=== PATIENT | female | born 1960 | race Caucasian/White ===

== ENCOUNTER 2019-07-08 08:38 | Inpatient (IN) | payer SELFPAY ==
[2019-07-08] MEDS ORDERED: DIPH/PERTUSS(ACELL)/TETANUS VAC/PF 0.5 ML SYR (>=10YO) IM ONE (09:03)
--- NOTE | 2019-07-08 09:06 | ER Document Report ---
ED Hip Pain/Injury - General Chief Complaint: Hip Pain Stated Complaint: FALL/R HIP PAIN Time Seen by Provider: 07/08/19 08:49 Mode of Arrival: Medic Information source: Patient Notes: Patient states she slipped in the shower yesterday falling injuring her right hip and elbow. Patient states she was able to crawl back to her room and get into bed. Patient complains of persistent right hip pain. Patient with laceration overlying the right elbow. Patient denies any head injury or loss of consciousness. Patient states injury occurred around 730 yesterday evening. TRAVEL OUTSIDE OF THE [place] IN LAST 30 DAYS: No - HPI Patient complains to provider of: Injury, Pain, Hip Where: Home Onset/Duration: Sudden Quality of pain: Sharp Pain Level: 3 Context: Fell/slipped Symptoms prior to fall: denies: Chest pain, Cough, Headache Symptoms since fall: Other - Right hip pain Skin Color: Normal Skin Temperature: Warm Use of anticoagulant: Plavix Other injuries: RUE, RLE - Related Data Allergies/Adverse Reactions: No Known Allergies Allergy (Verified 07/08/19 09:33) Past Medical History - General Information source: Patient - Social History Smoking Status: Never Smoker Lives with: Alone Family History: Reviewed & Not Pertinent - Past Medical History Cardiac Medical History: Reports: Hx Hypercholesterolemia, Hx Hypertension Neurological Medical History: Reports: Hx Cerebrovascular Accident Past Surgical History: Reports: Hx Appendectomy, Hx Tubal Ligation Review of Systems - Review of Systems Constitutional: No symptoms reported EENT: No symptoms reported Cardiovascular: No symptoms reported. denies: Chest pain, Lightheaded Respiratory: No symptoms reported Gastrointestinal: No symptoms reported. denies: Abdominal pain, Nausea, Vomiting Genitourinary: No symptoms reported Female Genitourinary: No symptoms reported Musculoskeletal: Joint pain - Right hip pain Skin: Other - Laceration to right elbow, bruising to right hip Hematologic/Lymphatic: No symptoms reported Neurological/Psychological: No symptoms reported. denies: Lost consciousness, Headaches Physical Exam - Vital signs Vitals: Resp 19 07/08/19 08:47 - General General appearance: Appears well, Alert In distress: None - HEENT Head: Normocephalic, Atraumatic Eyes: Normal Nasal: Normal Neck: Normal, Supple. No: Lymphadenopathy - Respiratory Respiratory status: No respiratory distress Chest status: Nontender Breath sounds: Normal. No: Rales, Rhonchi, Stridor, Wheezing Chest palpation: Normal - Cardiovascular Rhythm: Regular Heart sounds: S1 appreciated, S2 appreciated Pulses: Normal: Dorsalis pedis - Abdominal Inspection: Normal Distension: No distension Bowel sounds: Normal Tenderness: Nontender Organomegaly: No organomegaly - Extremities General upper extremity: Tender - Mild tenderness to right elbow, Normal str ength General lower extremity: Tender - Right hip tenderness Shoulder: Normal, Nontender Arm: Normal, Nontender Elbow: Tender - Right elbow tenderness with overlying 1.5 cm laceration, wound edges almost completely approximated, Laceration. No: Limited ROM Forearm: Normal, Nontender Wrist: Normal, Nontender Hand: Normal, Nontender Hip: Tender - Right hip tenderness, Ecchymosis, Unable to bear weight, Other - Right leg externally rotated, leg length discrepancy right shorter than left Knee: Normal, Nontender Calf: Normal, Nontender Ankle: Normal, Nontender Foot: Normal, Nontender - Neurological Neuro grossly intact: Yes Cognition: Normal [place] Coma Scale Eye Opening: Spontaneous [place] Coma Scale Verbal: Oriented Arely Coma Scale Motor: Obeys Commands Arely Coma Scale Total: 15 - Psychological Associated symptoms: Normal affect, Normal mood - Skin Skin Temperature: Warm Skin Moisture: Dry Skin Color: Ecchymosis - Right hip Skin irregularity: Laceration - 1.5 cm laceration overlying right elbow Course - Re-evaluation Re-evalutation: 07/08/19 10:50 Pt with right subcapital hip fracture. Consulted with Dr. Schmidt regarding patient presentation. Discussed patient's previous medical history. Request that hospitalist admit patient due to underlying comorbidities. 07/08/19 10:[address] Hawthorne who agrees to accept patient to [facility]'s services. - Vital Signs Vital signs: Temp Pulse Resp BP Pulse Ox 98.3 F 16 186/105 H 94 07/08/19 10:15 07/08/19 13:12 07/08/19 13:13 07/08/19 13:12 - Laboratory Result Diagrams: 07/08/19 08:59 07/08/19 08:59 Laboratory results interpreted by me: 07/08/19 07/08/19 08:59 08:59 RBC 3.63 L Hgb 10.4 L Hct 30.6 L RDW 17.7 H Lymph % (Auto) 5.8 L Absolute Neuts (auto) 8.6 H Seg Neutrophils % 84.6 H Sodium 131.9 L Labs- Entire Visit 07/08/19 07/08/19 07/08/19 08:59 08:59 09:09 WBC 10.2 RBC 3.63 L Hgb 10.4 L Hct 30.6 L MCV 84 MCH 28.6 MCHC 34.0 RDW 17.7 H Plt Count 294 Lymph % (Auto) 5.8 L [place] % (Auto) 9.2 Eos % (Auto) 0.1 Baso % (Auto) 0.3 Absolute Neuts (auto) 8.6 H Absolute Lymphs (auto) 0.6 Absolute Monos (auto) 0.9 Absolute Eos (auto) 0.0 Absolute Basos (auto) 0.0 Seg Neutrophils % 84.6 H Sodium 131.9 L Potassium 3.8 Chloride 99 Carbon Dioxide 25 Anion Gap 8 BUN 8 Creatinine 0.66 Est GFR ( Amer) > 60 Est GFR (MDRD) Non-Af > 60 Glucose 104 Calcium 9.2 Total Bilirubin 0.9 Direct Bilirubin 0.0 Neonat Total Bilirubin Not Reportable Neonat Direct Bilirubin Not Reportable Neonat Indirect Bili Not Reportable AST 28 ALT 15 Alkaline Phosphatase 62 Creatine Kinase 105 Total Protein 7.1 Albumin 4.3 Urine Color YELLOW Urine Appearance CLEAR Urine pH 6.0 Ur Specific [place] 1.010 Urine Protein NEGATIVE Urine Glucose (UA) NEGATIVE Urine Ketones NEGATIVE Urine Blood NEGATIVE Urine Nitrite NEGATIVE Urine Bilirubin NEGATIVE Urine Urobilinogen NEGATIVE Ur Leukocyte Esterase NEGATIVE Urine WBC (Auto) 1 Urine RBC (Auto) 2 U Hyaline Cast (Auto) 1 Squamous Epi Cells Auto <1 Urine Mucus (Auto) RARE Urine Ascorbic Acid NEGATIVE - Diagnostic Test Radiology reviewed: Image reviewed, Reports reviewed Procedures - Laceration/Wound Repair Right Elbow Wound length (cm): 1.5 Wound's Depth, Shape: Linear Laceration pre-procedure: Betadine prep applied Wound explored: Clean Wound Repaired With: Steri-strips, Dermabond Layer Closure?: No Post-procedure NV exam normal: Yes Complications: No Discharge - Discharge Clinical Impression: Closed right hip fracture Qualifiers: Encounter type: initial encounter Qualified Code(s): S72.001A - Fracture of unspecified part of neck of right femur, initial encounter for closed fracture Laceration of right elbow Qualifiers: Encounter type: initial encounter Qualified Code(s): S51.011A - Laceration without foreign body of right elbow, initial encounter Condition: Stable Disposition: ADMITTED INPATIENT Admitting Provider: Christoph (Hospitalist) Unit Admitted: Medical Floor
[2019-07-08 09:11] LABS: ABSOLUTE LYMPHOCYTES (AUTO) 0.6 10^3/uL (0.5-4.7); ABSOLUTE MONOCYTES (AUTO) 0.9 10^3/uL (0.1-1.4); ABSOLUTE NEUT (AUTO) 8.6 10^3/uL (1.7-8.2); BASOPHILS % (AUTO) 0.3 % (0-2); EOSINOPHILS % (AUTO) 0.1 % (0-6); HEMATOCRIT 30.6 % (36.0-47.0); HEMOGLOBIN 10.4 g/dL (12.0-15.5); LYMPHOCYTES % (AUTO) 5.8 % (13-45); MEAN CORPUSCULAR HEMOGLOBIN 28.6 pg (27.0-33.4); MEAN CORPUSCULAR VOLUME 84 fl (80-97); MONOCYTES % (AUTO) 9.2 % (3-13); PLATELET COUNT 294 10^3/uL (150-450); RED BLOOD COUNT 3.63 10^6/uL (3.72-5.28); RED CELL DISTRIBUTION WIDTH 17.7 % (11.5-14.0); SEGMENTED NEUTROPHILS % (AUTO) 84.6 % (42-78); TOTAL CELLS COUNTED % (AUTO) 100 %; WHITE BLOOD COUNT 10.2 10^3/uL (4.0-10.5)
[2019-07-08 09:26] LABS: APPEARANCE,URINE CLEAR; BILIRUBIN,URINE NEGATIVE (NEGATIVE); COLOR,URINE YELLOW; GLUCOSE, URINE NEGATIVE (NEGATIVE); KETONES,URINE NEGATIVE (NEGATIVE); LEUKOCYTE ESTERASE,URINE NEGATIVE (NEGATIVE); NITRITE,URINE NEGATIVE (NEGATIVE); PROTEIN,URINE NEGATIVE (NEGATIVE); UROBILINOGEN,URINE NEGATIVE mg/dL (<2.0)
[2019-07-08 09:33] LABS: ALBUMIN 4.3 g/dL (3.5-5.0); ALKALINE PHOSPHATASE 62 U/L (38-126); ANION GAP 8 (5-19); ASPARTATE AMINO TRANSFERASE 28 U/L (14-36); BILIRUBIN,TOTAL 0.9 mg/dL (0.2-1.3); BLOOD UREA NITROGEN 8 mg/dL (7-20); CALCIUM 9.2 mg/dL (8.4-10.2); CARBON DIOXIDE 25 mmol/L (22-30); CHLORIDE 99 mmol/L (98-107); CREATINE KINASE 105 U/L (30-135); GLUCOSE 104 mg/dL (75-110); POTASSIUM 3.8 mmol/L (3.6-5.0); TOTAL PROTEIN 7.1 g/dL (6.3-8.2)
--- NOTE | 2019-07-08 09:57 | RADIOLOGY REPORT (SQ) ---
EXAM DESCRIPTION: HIP RIGHT AP/LATERAL IMAGES COMPLETED DATE/TIME: 07/08/2019 9:49 am REASON FOR STUDY: fall; pain upon ambulating COMPARISON: None. NUMBER OF VIEWS: Two views. TECHNIQUE: AP and frog-leg view of the right hip. LIMITATIONS: Artifact overlies the left hip. FINDINGS: MINERALIZATION: Normal. RIGHT HIP: Subcapital right hip fracture with resulting varus deformity. OPPOSITE HIP: Grossly intact. SOFT TISSUES: No findings. OTHER: No other significant finding. IMPRESSION: Subcapital right hip fracture with resulting varus deformity. COMMENT: Pelvic fractures are often occult on plain radiographs. If strong clinical suspicion for f racture, recommend CT or MR. TECHNICAL DOCUMENTATION: JOB ID: [id number] 2010 [employer]- All Rights Reserved Reading location - IP/workstation name: [email or web address]
--- NOTE | 2019-07-08 10:18 | RADIOLOGY REPORT (SQ) ---
EXAM DESCRIPTION: ELBOW RIGHT OVER 2 VIEWS IMAGES COMPLETED DATE/TIME: 07/08/2019 9:49 am REASON FOR STUDY: fall, elbow injury COMPARISON: None. NUMBER OF VIEWS: Four views. TECHNIQUE: AP, lateral, and both oblique radiographic images acquired of the right elbow. LIMITATIONS: None. FINDINGS: MINERALIZATION: Normal. BONES: No acute fracture or dislocation. No worrisome bone lesions. JOINT: No effusion. SOFT TISSUES: No soft tissue swelling. No foreign body. OTHER: No other significant finding. IMPRESSION: NEGATIVE STUDY OF THE RIGHT ELBOW. NO RADIOGRAPHIC EVIDENCE OF ACUTE INJURY. TECHNICAL DOCUMENTATION: JOB ID: [id number] 2010 [employer]- All Rights Reserved Reading location - IP/workstation name: [email or web address]
--- NOTE | 2019-07-08 10:19 | RADIOLOGY REPORT (SQ) ---
EXAM DESCRIPTION: CHEST SINGLE VIEW IMAGES COMPLETED DATE/TIME: 07/08/2019 9:49 am REASON FOR STUDY: PRE OP COMPARISON: None. EXAM PARAMETERS: NUMBER OF VIEWS: One view. TECHNIQUE: Single frontal radiographic view of the chest acquired. RADIATION DOSE: NA LIMITATIONS: None. FINDINGS: LUNGS AND PLEURA: No opacities, masses or pneumothorax. No pleural effusion. MEDIASTINUM AND HILAR STRUCTURES: No masses. Contour normal. HEART AND VASCULAR STRUCTURES: Heart normal in size. Normal vasculature. BONES: No acute findings. HARDWARE: None in the chest. OTHER: No other significant finding. IMPRESSION: NO ACUTE RADIOGRAPHIC FINDING IN THE CHEST. TECHNICAL DOCUMENTATION: JOB ID: [id number] 2010 [employer]- All Rights Reserved Reading location - IP/workstation name: [email or web address]
[2019-07-08] MEDS ORDERED: MORPHINE SULFATE 10 MG/ML INJ IV ONE (10:39)
[2019-07-08] MEDS ORDERED: ONDANSETRON HCL INJ/PF 4 MG/2 ML SDV IV ONE (10:49)
[2019-07-08] MEDS ORDERED: ONDANSETRON HCL INJ/PF 4 MG/2 ML SDV IV PRN (12:14)
[2019-07-08] MEDS ORDERED: ACETAMINOPHEN 325 MG TABLET PO PRN (12:18)
[2019-07-08] MEDS ORDERED: MAGNESIUM HYDROXIDE SUSP 30 ML UDCUP PO PRN (12:18)
[2019-07-08] MEDS ORDERED: TEMAZEPAM 7.5 MG CAPSULE PO PRN (12:18)
[2019-07-08] MEDS ORDERED: MAG HYDROX/AL HYDROX/SIMETH SUSP 30 ML UDCUP PO PRN (12:18)
[2019-07-08] MEDS ORDERED: METOPROLOL TARTRATE PF/INJ 5 MG/5 ML SDV IV PRN (12:29)
--- NOTE | 2019-07-08 12:37 | PDOC CONSULTATION ---
Consultation Consult Date: 07/08/19 Attending physician:: MARCIA STEPHENS Provider Consulted: KENN MAY Consult reason:: Right Hip Pain History of Present Illness Admission Date/PCP: 07/08/19 11:10 Patient complains of: Right hip pain History of Present Illness: MARVIN FONTAINE is a 59 year old female who sustained a fall onto her right hip last evening while in the bathroom. Patient lives at home alone and was an independent ambulator until most recent fall. She was able to get out of the bathroom according to the patient by crawling. Patient states pain 5/5 worse with motion. denies numbness or tingling. Denies pain prior to fall. Past Medical History Cardiac Medical History: Reports: Hyperlipidema, Hypertension Past Surgical History Past Surgical History: Reports: Appendectomy, Tubal Ligation Social History Lives with: Alone Smoking Status: Never Smoker Family History Family History: Reviewed & Not Pertinent Parental Family History Reviewed: No Children Family History Reviewed: No Sibling(s) Family History Reviewed.: No Medication/Allergy Home Medications: Amlodipine Besylate [Norvasc 5 mg Tablet] 5 mg PO DAILY 07/08/19 Clopidogrel Bisulfate [Plavix 75 mg Tablet] 75 mg PO DAILY 07/08/19 Pantoprazole Sodium [Protonix [address] Tablet] 40 mg PO QAM 07/08/19 Pravastatin Sodium 20 mg PO DAILY 07/08/19 Allergies/Adverse Reactions: No Known Allergies Allergy (Verified 07/08/19 09:33) Review of Systems Constitutional: ABSENT: chills, fever(s), headache(s), weight gain, weight loss Eyes: ABSENT: visual disturbances Ears: ABSENT: hearing changes Cardiovascular: PRESENT: chest pain. ABSENT: dyspnea on exertion, edema, orthropnea, palpitations Respiratory: ABSENT: cough, hemoptysis Gastrointestinal: ABSENT: abdominal pain, constipation, diarrhea, hematemesis, hematochezia, nausea, vomiting Genitourinary: ABSENT: dysuria, hematuria Musculoskeletal: PRESENT: as per HPI, other Integumentary: ABSENT: rash, wounds Neurological: ABSENT: abnormal gait, abnormal speech, confusion, dizziness, focal weakness, syncope Psychiatric: ABSENT: anxiety, depression, homidical ideation, suicidal ideation Endocrine: ABSENT: cold intolerance, heat intolerance, menstrual abnormalities, polydipsia, polyuria Hematologic/Lymphatic: ABSENT: easy bleeding, easy bruising, lymphadenopathy Physical Exam Vital Signs: Temp Pulse Resp BP Pulse Ox 98.3 F 16 175/112 H 94 07/08/19 10:15 07/08/19 10:01 07/08/19 10:01 07/08/19 10:01 Intake & Output 07/07/19 07/08/19 07/09/19 06:59 06:59 06:59 Weight 49.5 kg General appearance: PRESENT: no acute distress, well-developed, well-nourished Head exam: PRESENT: atraumatic, normocephalic Eye exam: PRESENT: conjunctiva pink, EOMI, PERRLA. ABSENT: scleral icterus Ear exam: PRESENT: normal external ear exam Mouth exam: PRESENT: moist, tongue midline Neck exam: PRESENT: full ROM. ABSENT: carotid bruit, JVD, lymphadenopathy, thyromegaly Respiratory exam: PRESENT: unlabored Cardiovascular exam: PRESENT: RRR. ABSENT: diastolic murmur, rubs, systolic murmur Pulses: PRESENT: normal dorsalis pedis pul, +2 pedal pulses bilateral Vascular exam: PRESENT: normal capillary refill GI/Abdominal exam: PRESENT: normal bowel sounds, soft. ABSENT: distended, guarding, mass, organolmegaly, rebound, tenderness Rectal exam: PRESENT: deferred Musculoskeletal exam: PRESENT: other - Right hip: Tenderness to palpation along the right hip. Positive logroll. Extremity short/externally rotated. Intact plantarflexion/dorsiflexion. No sensory deficits. Neurological exam: PRESENT: alert, awake, oriented to person, oriented to place, oriented to time, oriented to situation, CN II-XII grossly intact. ABSENT: motor sensory deficit Psychiatric exam: PRESENT: appropriate affect, normal mood. ABSENT: homicidal ideation, suicidal ideation Skin exam: PRESENT: dry, intact, warm. ABSENT: cyanosis, rash Results Laboratory Results: 07/08/19 08:59 07/08/19 08:59 07/08/19 07/08/19 07/08/19 08:59 08:59 09:09 WBC 10.2 RBC 3.63 L Hgb 10.4 L Hct 30.6 L MCV 84 MCH 28.6 MCHC 34.0 RDW 17.7 H Plt Count 294 Seg Neutrophils % 84.6 H Sodium 131.9 L Potassium 3.8 Chloride 99 Carbon Dioxide 25 Anion Gap 8 BUN 8 Creatinine 0.66 Est GFR ( Amer) > 60 Glucose 104 Calcium 9.2 Total Bilirubin 0.9 AST 28 Alkaline Phosphatase 62 Total Protein 7.1 Albumin 4.3 Urine Color YELLOW Urine Appearance CLEAR Urine pH 6.0 Ur Specific [place] 1.010 Urine Protein NEGATIVE Urine Glucose (UA) NEGATIVE Urine Ketones NEGATIVE Urine Blood NEGATIVE Urine Nitrite NEGATIVE Ur Leukocyte Esterase NEGATIVE Urine WBC (Auto) 1 Urine RBC (Auto) 2 07/08/19 08:59 Creatine Kinase 105 Impressions: Hip/Pelvis X-Ray 07/08/19 00:00 IMPRESSION: Subcapital right hip fracture with resulting varus deformity. Chest X-Ray 07/08/19 09:02 IMPRESSION: NO ACUTE RADIOGRAPHIC FINDING IN THE CHEST. Elbow X-Ray 07/08/19 09:02 IMPRESSION: NEGATIVE STUDY OF THE RIGHT ELBOW. NO RADIOGRAPHIC EVIDENCE OF ACUTE INJURY. Status: Image reviewed by me - I have reviewed patient's radiographs consistent with right displaced femoral neck fracture Assessment & Plan - Diagnosis (1) Fracture of femoral neck, right Qualifiers: Encounter type: initial encounter Fracture type: closed Qualified Code(s): S72.001A - Fracture of unspecified part of neck of right femur, initial encounter for closed fracture Is this a current diagnosis for this admission?: Yes Plan: Patient seen and examined in the emergency room where radiographs demonstrated displaced right femoral neck fracture. Today we discussed treatment options given the amount of displacement I feel patient is best suited for right hip arthroplasty. Unfortunately patient has history of CVA, intermittent chest pain and long QT concerning for the possibility of underlying cardiac disease thus will require cardiac clearance prior to operative intervention. Patient also obtain COVID-19 preoperative testing as well. Risk and benefits of the surgical procedure have been explained patient verbalized understanding consented for surgical procedure. Plan will be operative intervention in the next 24 to 48 hours pending clearance. Risk include anesthetic complications, excessive bleeding, infection, injury to surrounding nerves, vessels and tendons, bruising, healing difficulties, scar formation, hardware complication, posttraumatic arthritis and any unforseen complication. Patient verbalized understanding consented for right hip hemiarthroplasty.
[2019-07-08 12:46] LABS: INTERNATIONAL RATION (INR) 1.08
[2019-07-08] MEDS: HYDROMORPHONE HCL INJ/PF 2 MG/ML AMPULE IV PRN ×2 (13:15→19:19)
--- NOTE | 2019-07-08 14:17 | EKG REPORT ---
SEVERITY:- ABNORMAL ECG - SINUS RHYTHM LEFT VENTRICULAR HYPERTROPHY PROLONGED QT INTERVAL : Confirmed by: Octavia Pedro MD 08-Jul-2019 14:16:56
[2019-07-08] MEDS: HEPARIN SOD (PORCINE) 5,000 UNIT/ML 1 ML VIAL SUBCUT SCH ×3 (14:30→21:07)
--- NOTE | 2019-07-08 15:00 | PDOC H&P ---
History of Present Illness Admission Date/PCP: 07/08/19 11:10 History of Present Illness: MARVIN FONTAINE is a 59 year old female presents to the emergency room after fracturing her right hip last night.. Patient states around 8:00 last night she was in the shower when she slipped and fell landing on her right hip. Due to the severe pain she was unable to get out of bed until early this morning when she came to the emergency room. Patient lives alone. The ER patient was found to have a subcapital displaced fracture of the femoral neck. Orthopedics has seen the patient and feels that she will need surgery and has asked the hospitalist service to admit the patient due to her comorbidities consisting of #1 hypertension #2 tobacco abuse #3 status post CVA #4 abnormal EKG. Patient tells me that for about a year she will have episodic chest pain that will come and go. Patient tells me she is never seen a physician for this.. Patient smokes a pack of cigarettes per day and has done so most of her life. Patient has a history of hypertension for many years and states that several years ago she had an ischemic stroke that resulted in no deficits.. Patient tells me she desires to be a DNR. Patient has a prolonged QT interval on her EKG and with her history of episodic chest pain she be seen by cardiology. Consulted cardiology to see her with us.. We will allow the patient to eat this afternoon and treat her prophylactically with heparin for DVTs and make her n.p.o. after midnight and stop the heparin tonight in anticipation for surgery tomorrow morning. I have answered all of patient's questions and she seems satisfied. Past Medical History Cardiac Medical History: Reports: Hyperlipidema, Hypertension Psychiatric Medical History: Reports: Depression Past Surgical History Past Surgical History: Reports: Appendectomy, Tubal Ligation Social History Lives with: Alone Smoking Status: Current Every Day Smoker Electronic Cigarette use?: No Frequency of Alcohol Use: Social Hx Recreational Drug Use: No Drugs: None Hx Prescription Drug Abuse: No - Advance Directive Resuscitation Status: Do Not Resuscitate Family History Family History: Reviewed & Not Pertinent Parental Family History Reviewed: No Children Family History Reviewed: No Sibling(s) Family History Reviewed.: No Medication/Allergy Home Medications: Amlodipine Besylate [Norvasc 5 mg Tablet] 5 mg PO DAILY 07/08/19 Clopidogrel Bisulfate [Plavix 75 mg Tablet] 75 mg PO DAILY 07/08/19 Pantoprazole Sodium [Protonix [address] Tablet] 40 mg PO QAM 07/08/19 Pravastatin Sodium 20 mg PO DAILY 07/08/19 Allergies/Adverse Reactions: No Known Allergies Allergy (Verified 07/08/19 09:33) Review of Systems Constitutional: ABSENT: chills, fever(s), headache(s), weight gain, weight loss Cardiovascular: PRESENT: chest pain. ABSENT: dyspnea on exertion, edema, orthropnea, palpitations Respiratory: ABSENT: cough, hemoptysis Neurological: ABSENT: abnormal gait, abnormal speech, confusion, dizziness, focal weakness, syncope Physical Exam Vital Signs: Temp Pulse Resp BP Pulse Ox 98.3 F 16 186/105 H 94 07/08/19 10:15 07/08/19 13:12 07/08/19 13:13 07/08/19 13:12 Intake & Output 07/07/19 07/08/19 07/09/19 06:59 06:59 06:59 Weight 49.5 kg General appearance: PRESENT: severe distress - Due to right hip pain, thin Respiratory exam: PRESENT: clear to auscultation odette. ABSENT: rales, rhonchi, wheezes Cardiovascular exam: PRESENT: RRR. ABSENT: diastolic murmur, rubs, systolic murmur Musculoskeletal exam: PRESENT: deformity - Right leg shorter than left with the leg externally rotated. Good distal pulses Neurological exam: PRESENT: alert, awake, oriented to person, oriented to place, oriented to time, oriented to situation, CN II-XII grossly intact. ABSENT: motor sensory deficit Psychiatric exam: PRESENT: appropriate affect, normal mood. ABSENT: homicidal ideation, suicidal ideation Results Laboratory Results: 07/08/19 08:59 07/08/19 08:59 07/08/19 07/08/19 07/08/19 08:59 08:59 08:59 WBC 10.2 RBC 3.63 L Hgb 10.4 L Hct 30.6 L MCV 84 MCH 28.6 MCHC 34.0 RDW 17.7 H Plt Count 294 Seg Neutrophils % 84.6 H Sodium 131.9 L Potassium 3.8 Chloride 99 Carbon Dioxide 25 Anion Gap 8 BUN 8 Creatinine 0.66 Est GFR ( Amer) > 60 Glucose 104 Calcium 9.2 Total Bilirubin 0.9 AST 28 Alkaline Phosphatase 62 Total Protein 7.1 Albumin 4.3 TSH 1.76 Urine Color Urine Appearance Urine pH Ur Specific [place] Urine Protein Urine Glucose (UA) Urine Ketones Urine Blood Urine Nitrite Ur Leukocyte Esterase Urine WBC (Auto) Urine RBC (Auto) 07/08/19 09:09 WBC RBC Hgb Hct MCV MCH MCHC RDW Plt Count Seg Neutrophils % Sodium Potassium Chloride Carbon Dioxide Anion Gap BUN Creatinine Est GFR ( Amer) Glucose Calcium Total Bilirubin AST Alkaline Phosphatase Total Protein Albumin TSH Urine Color YELLOW Urine Appearance CLEAR Urine pH 6.0 Ur Specific [place] 1.010 Urine Protein NEGATIVE Urine Glucose (UA) NEGATIVE Urine Ketones NEGATIVE Urine Blood NEGATIVE Urine Nitrite NEGATIVE Ur Leukocyte Esterase NEGATIVE Urine WBC (Auto) 1 Urine RBC (Auto) 2 07/08/19 08:59 Creatine Kinase 105 Impressions: Hip/Pelvis X-Ray 07/08/19 00:00 IMPRESSION: Subcapital right hip fracture with resulting varus deformity. Chest X-Ray 07/08/19 09:02 IMPRESSION: NO ACUTE RADIOGRAPHIC FINDING IN THE CHEST. Elbow X-Ray 07/08/19 09:02 IMPRESSION: NEGATIVE STUDY OF THE RIGHT ELBOW. NO RADIOGRAPHIC EVIDENCE OF ACUTE INJURY. Assessment and Plan - Diagnosis (1) Hypertension Is this a current diagnosis for this admission?: Yes (2) Tobacco abuse Is this a current diagnosis for this admission?: Yes (3) Chest pain Is this a current diagnosis for this admission?: Yes (4) Closed right hip fracture Qualifiers: Encounter type: initial encounter Qualified Code(s): S72.001A - Fracture of unspecified part of neck of right femur, initial encounter for closed fracture Is this a current diagnosis for this admission?: Yes (5) Laceration of right elbow Qualifiers: Encounter type: initial encounter Qualified Code(s): S51.011A - Laceration without foreign body of right elbow, initial encounter Is this a current diagnosis for this admission?: Yes (6) Abnormal EKG Is this a current diagnosis for this admission?: Yes - Plan Summary Summary: Patient will be admitted to the hospital for IV analgesia, blood pressure control, cardiology consult and surgical repair of fractured right femoral neck. Patient has told me she desires to be a DNR if the situation arises. We will try Dilaudid for her pain and Zofran for nausea. Patient is medically stable to move to the floor. I have discussed care with the orthopedic surgeon and gaming table operator. - Time Time Spent with patient: 35 or more minutes
[2019-07-08] MEDS: OXYCODONE-ACETAMINOPHEN 5-325 MG TABLET PO PRN ×2 (15:05→23:08)
[2019-07-08] MEDS: NORMAL SALINE 1000 ML 1,000 ML IV PRN ×2 (15:10→23:05)
[2019-07-08] MEDS ORDERED: AMLODIPINE BESYLATE 5 MG TABLET PO ONE (18:00)
--- NOTE | 2019-07-08 18:08 | XCELERA REPORT ---
[address] [address] Transthoracic Echocardiogram Report Name: MARVIN FONTAINE Age: 59 yrs Gender: Female : 1960 Patient Status: Inpatient Patient Location: [place] [id number] Study Date: 07/08/2019 02:04 PM Height: 70 in Weight: 109 lb BSA: 1.6 m2 Procedure: A two-dimensional transthoracic echocardiogram with color flow and Doppler was performed. Study Quality: Fair. Reason For Study: murmur and pre op History: murmur and pre op. Ordering Physician: ANGELO MONROY Performed By: Moo Hicks Interpretation Summary The left ventricle is normal in size. There is mild concentric left ventricular hypertrophy. LV EF is > than 65% Left ventricular systolic function is normal. Doppler measurements suggest impaired left ventricular relaxation, which is associated with grade I/IV or mild diastolic dysfunction The left ventricular wall motion is normal. There is no thrombus. No ASD,VSD,or PFO seen. The right ventricle is normal in size and function. The right atrium is normal. The left atrial size is normal. There is no evidence of mitral valve prolapse. There is no vegetation seen on the mitral valve. There is no mitral valve stenosis. There is a mild amount of mitral regurgitation There is no aortic valvular vegetation. There is no aortic valve stenosis There is aortic sclerosis without aortic stenosis. There is a trace amount of aortic regurgitation There is no tricuspid stenosis. There is a mild amount of tricuspid regurgitation There is mild pulmonary hypertension by echo RVSP is 42 to 47 mm of Hg , with RA mean of 5 to 10. There is no pulmonic valvular stenosis. There is a trace amount of pulmonic regurgitation The aortic root is normal size. The inferior vena cava appeared normal and decreased > 50% with respiration (RAP 5-10 mmHg) There is no pericardial effusion. MMode/2D Measurements & Calculations RVDd: 2.2 cm LVIDd: 3.0 cm FS: 35.8 % Ao root diam: 2.9 cm IVSd: 1.1 cm LVIDs: 1.9 cm EDV(Teich): 35.7 ml Ao root area: 6.4 cm2 LVPWd: 1.3 cm ESV(Teich): 11.8 ml LA dimension: 2.3 cm EF(Teich): 67.0 % Doppler Measurements & Calculations MV E max marilee: MV P1/2t max marilee: Ao V2 max: LV V1 max P.3 cm/sec 78.9 cm/sec 127.6 cm/sec 2.5 mmHg MV A max marilee: MV P1/2t: 77.7 msec Ao max PG: LV V1 max: 84.0 cm/sec MVA(P1/2t): 2.8 cm2 6.5 mmHg 79.7 cm/sec MV E/A: 0.90 MV dec slope: 297.2 cm/sec2 MV dec time: 0.17 sec PA V2 max: PI end-d marilee: TR max marilee: MV P1/2t-pr_phl: 68.8 cm/sec 93.4 cm/sec 304.0 cm/sec 77.7 msec PA max PG: TR max P.9 mmHg 37.0 mmHg Left Ventricle The left ventricle is normal in size. There is mild concentric left ventricular hypertrophy. LV EF is > than 65%. Left ventricular systolic function is normal. Doppler measurements suggest impaired left ventricular relaxation, which is associated with grade I/IV or mild diastolic dysfunction. The left ventricular wall motion is normal. There is no thrombus. No ASD,VSD,or PFO seen. Right Ventricle The right ventricle is normal in size and function. Atria The right atrium is normal. The left atrial size is normal. Mitral Valve There is no evidence of mitral valve prolapse. There is no vegetation seen on the mitral valve. There is no mitral valve stenosis. There is a mild amount of mitral regurgitation. Aortic Valve There is no aortic valvular vegetation. There is no aortic valve stenosis. There is aortic sclerosis without aortic stenosis. There is a trace amount of aortic regurgitation. Tricuspid Valve There is no tricuspid stenosis. There is a mild amount of tricuspid regurgitation. There is mild pulmonary hypertension by echo. RVSP is 42 to 47 mm of Hg , with RA mean of 5 to 10. Pulmonic Valve There is no pulmonic valvular stenosis. There is a trace amount of pulmonic regurgitation. Great Vessels The aortic root is normal size. The inferior vena cava appeared normal and decreased > 50% with respiration (RAP 5-10 mmHg). Effusions There is no pericardial effusion. : ANGELO MONROY Lakshmi
--- NOTE | 2019-07-08 18:11 | PDOC CONSULTATION ---
Consultation-Blank Consultation: CARDIOLOGY CONSULTATION by Dr. Octavia Pedro on 07/08/2019. Patient seen at 7 PM. 60 minutes spent on this patient with more than 50% of time spent in direct patient care. REASON FOR CONSULTATION: Preoperative cardiac risk assessment in patient for hip surgery. 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 There is no history of syncope. The patient recently has not had chest pains. The concern is that the patient is EKG shows increased QTc interval. The patient has no history suggestive of long QT syndrome. She has no prior history of syncope. She states about 14 years ago she was hypertensive which is uncontrolled and had loss of ability to move all 4 extremities but recovered fully. She also seems to have chest pain which is not related to exertion last for a few minutes off and on and clearly noncardiac. Although she is a smoker there is no history of COPD. She denies any recent cough or sputum production. To work-up the patient for surgery the patient had a COVID testing done which was negative. There is no history of congestive heart failure palpitations. There is no leg edema. There is no history of asthma COPD or sleep apnea. She has no history of diabetes mellitus or thyroid disease. There is no history of chronic kidney disease. Past Medical History Cardiac Medical History: Reports: Hyperlipidema, Hypertension Psychiatric Medical History: Reports: Depression Past Surgical History Past Surgical History: Reports: Appendectomy, Tubal Ligation Social History Lives with: Alone Smoking Status: Current Every Day Smoker Electronic Cigarette use?: No Frequency of Alcohol Use: Social Hx Recreational Drug Use: No Drugs: None Hx Prescription Drug Abuse: No - Advance Directive Resuscitation Status: Do Not Resuscitate. The patient's daughter is her surrogate healthcare decision maker. Family History Family History: Reviewed & Not Pertinent there is a history of hypertension in the family. No history of coronary artery disease. Parental Family History Reviewed: Yes Children Family History Reviewed: Yes Sibling(s) Family History Reviewed.: Yes Medication/Allergy Home Medications: Amlodipine Besylate [Norvasc 5 mg Tablet] 5 mg PO DAILY 07/08/19 Clopidogrel Bisulfate [Plavix 75 mg Tablet] 75 mg PO DAILY 07/08/19 Pantoprazole Sodium [Protonix [address] Tablet] 40 mg PO QAM 07/08/19 Pravastatin Sodium 20 mg PO DAILY 07/08/19 Allergies/Adverse Reactions: No Known Allergies Allergy (Verified 07/08/19 09:33) Current Medications Generic Name Dose Route Start Last Admin Trade Name Freq PRN Reason Stop Dose Admin Acetaminophen 650 mg 07/08/19 12:18 Tylenol 325 Mg Tablet PO 08/07/19 12:17 Q4HP PRN FOR PAIN Al Hydrox/Mg Hydrox/Simethicone 30 ml 07/08/19 12:18 Maalox Plus Susp 30 Udcup PO 08/07/19 12:17 Q6HP PRN HEARTBURN Amlodipine Besylate 5 mg 07/09/19 10:00 Norvasc 5 Mg Tablet PO 08/08/19 09:59 DAILY ADY Docusate Sodium 100 mg 07/09/19 10:00 Colace 100 Mg Capsule PO 08/08/19 09:59 DAILY ADY Famotidine 20 mg 07/08/19 22:00 07/08/19 21:11 Pepcid Inj/Pf 20 Mg/2 Ml Sdv IV 08/07/19 21:59 20 mg Q12 ADY Administration Heparin Sodium (Porcine) 5,000 unit 07/08/19 14:00 07/08/19 21:07 Heparin Inj 5,000 Units/Ml 1 Ml Vial SUBCUT 08/07/19 13:59 Not Given Q8 ADY Hydralazine HCl 20 mg 07/08/19 19:02 Apresoline Inj/Pf 20 Mg/1 Ml Sdv IV 08/07/19 19:01 Q4HP PRN SBP>170 OR DBP>95 Hydromorphone HCl 0.5 mg 07/08/19 12:14 07/08/19 19:19 Dilaudid Inj/Pf 2 Mg/Ml Ampule IV 07/15/19 12:13 0.5 mg Q4HP PRN Administration FOR PAIN Sodium Chloride 1,000 mls @ 125 mls/hr 07/08/19 12:18 07/08/19 15:10 Nacl 0.9% 1000 Ml Iv Soln IV 08/07/19 12:17 125 mls/hr CONTINUOUS PRN Administration THIS MED IS NOT "PRN" Magnesium Hydroxide 30 ml 07/08/19 12:18 Milk Of Magnesia 30 Ml Udcup PO 08/07/19 12:17 HSP PRN FOR CONSTIPATION Metoprolol Tartrate 2.5 mg 07/08/19 12:29 07/08/19 13:14 Lopressor Inj/Pf 5 Mg/5 Ml Sdv IV 08/07/19 12:28 2.5 mg Q6HP PRN Administration Give For Sbp >160 / Dbp >95 Ondansetron HCl 4 mg 07/08/19 12:14 07/08/19 17:42 Zofran Inj/Pf 4 Mg/2 Ml Sdv IV 08/07/19 12:13 4 mg Q4HP PRN Administration FOR NAUSEA/VOMITING Oxycodone/Acetaminophen 1 tab 07/08/19 12:18 07/08/19 15:05 Percocet 5-325 Mg Tablet PO 07/15/19 12:17 1 tab Q6HP PRN Administration FOR PAIN Simvastatin 10 mg 07/08/19 22:00 07/08/19 21:11 Zocor 10 Mg Tablet PO 08/07/19 21:59 10 mg QHS ADY Administration Temazepam 7.5 mg 07/08/19 12:18 Restoril 7.5 Mg Capsule PO 07/15/19 12:17 HSP PRN SLEEP OR INSOMNIA Discontinued Medications Generic Name Dose Route Start Last Admin Trade Name Freq PRN Reason Stop Dose Admin Amlodipine Besylate 5 mg 07/08/19 18:00 07/08/19 17:42 Norvasc 5 Mg Tablet PO 07/08/19 18:01 5 mg NOW ONE Administration Diphtheria/Tetanus/Acell Pertussis 0.5 ml 07/08/19 09:03 07/08/19 10:49 Boostrix Vaccine 0.5 Ml Syringe IM 07/08/19 09:04 0.5 ml NOW ONE Administration Morphine Sulfate 4 mg 07/08/19 10:39 07/08/19 10:48 Morphine 10 Mg/Ml Inj IV 07/08/19 10:40 4 mg NOW ONE Administration Ondansetron HCl 8 mg 07/08/19 10:49 07/08/19 10:55 Zofran Inj/Pf 4 Mg/2 Ml Sdv IV 07/08/19 10:50 8 mg NOW ONE Administration Review of Systems Constitutional: ABSENT: chills, fever(s), headache(s), weight gain, weight loss Cardiovascular: PRESENT: chest pain. His chest pain is not related to exertion and appears to be noncardiac. ABSENT: dyspnea on exertion, edema, orthropnea, palpitations. No history of congestive heart failure or syncope. Due to pain her blood pressure is not very well controlled. Respiratory: ABSENT: cough, hemoptysis. She is a smoker but does not carry a diagnosis of COPD. There is no history of sleep apnea. There is no history of pulmonary embolism or hemoptysis. Neurological: ABSENT: abnormal gait, abnormal speech, confusion, dizziness, focal weakness, syncope. No recurrence of TIA or CVA. No history of headaches migraines or seizures. ENDOCRINE: No history of polydipsia polyuria. No history of heat or cold intolerance. No history of hypothyroidism or diabetes mellitus. Metabolic: No history of obesity. No history of gout. History of hyperlipidemia on pravastatin. MUSCULOSKELETAL: No history of collagen vascular disease. No acute joint pains or joint swelling. RENAL: No symptoms of UTI. No history of chronic kidney disease. No hematuria pyuria or dysuria. HEAD: Denies headaches or head injury. EYES: No sore amblyopia diplopia. No history of amaurosis fugax. EARS: No severe hearing loss. No tinnitus. NECK: No swelling in the neck. No neck pain. SKIN: There is no petechia or ecchymosis. No rashes or pruritus no yellowish discoloration of the skin. GI: No history of GI bleed. No history of fatty food intolerance. No history of ascites. No history of cirrhosis. No history of hematemesis or melena. PSYCHIATRIC: No history of anxiety or depression. No suicidal ideation. No homicidal ideation. Mouth:. There is no altered taste sensation. There is no ulcers in the mouth. THROAT: There is no odynophagia or dysphagia. No recurrent sore throats. HEMATOLOGICAL: No history of bleeding diathesis or clotting disorders. No blood dyscrasias. PHYSICAL EXAMINATION: The patient is of slim build but appears to be well- nourished. She is in mild to moderate distress due to pain in the right hip area where she fractured her hip after accidental fall. Selected Entries 07/08/19 19:25 Temperature 98.5 F Temperature Oral Source Pulse Rate 80 Respiratory 16 Rate Blood Pressure 170/94 H Blood Pressure 119 Mean BP Location Left Arm BP Position Supine O2 Sat by Pulse 95 Oximetry Oxygen Delivery Room Air Method HEAD: Head is atraumatic normocephalic. EYES: Pupils are equal round regular reactive light accommodation extraocular movements are normal. There is no conjunctival pallor. There is no scleral icterus. EARS: Tympanic memories are intact external auditory canals are clear. NOSE: There is no deviated nasal septum. There is no inflammation of these mucous membrane. MOUTH: Mucous membranes of mouth are moist tongue is moist there is no ulcers there is no bleeding from the gums. THROAT: There is no redness of the oropharynx. There is no exudates. NECK: Supple there is no JVD carotids are equal there is no bruit. There is no lymphadenopathy. There is no goiter. There is no accessory muscle respiration use. Trachea central. LUNGS: Is clear to auscultation percussion. HEART: S1-S2 is heard there is no S3 gallop there is no S4 gallop. There is mild mitral murmurs of mitral regurgitation tricuspid regurgitation present. There is no aortic stenosis or aortic regurgitation. There is no rub. ABDOMEN: Soft nontender there is no paraspinal megaly. Bowel sounds are well heard. EXTREMITIES: Left hip is tender. There is foreshortening of the left lower extremity. Peripheral pulses are well felt. There is no femoral bruits. There is no pedal edema. There is no DVT or cellulitis. There is no cyanosis or clubbing. PAPER SUPERVISOR: The patient is conscious awake alert oriented x3 with no focal deficits. PSYCHIATRIC problem the patient judgment insight are intact her affect is normal. EKG: The patient first EKG shows sinus rhythm LVH. Prolonged QT interval. Subsequent EKG shows sinus rhythm with LVH with borderline QT interval. Labs- All tests 24 hr 07/08/19 07/08/19 07/08/19 08:59 08:59 08:59 WBC 10.2 RBC 3.63 L Hgb 10.4 L Hct 30.6 L MCV 84 MCH 28.6 MCHC 34.0 RDW 17.7 H Plt Count 294 Lymph % (Auto) 5.8 L Stanley % (Auto) 9.2 Eos % (Auto) 0.1 Baso % (Auto) 0.3 Absolute Neuts (auto) 8.6 H Absolute Lymphs (auto) 0.6 Absolute Monos (auto) 0.9 Absolute Eos (auto) 0.0 Absolute Basos (auto) 0.0 Seg Neutrophils % 84.6 H PT 14.0 INR 1.08 Sodium 131.9 L Potassium 3.8 Chloride 99 Carbon Dioxide 25 Anion Gap 8 BUN 8 Creatinine 0.66 Est GFR ( Amer) > 60 Est GFR (MDRD) Non-Af > 60 Glucose 104 Calcium 9.2 Total Bilirubin 0.9 Direct Bilirubin 0.0 Neonat Total Bilirubin Not Reportable Neonat Direct Bilirubin Not Reportable Neonat Indirect Bili Not Reportable AST 28 ALT 15 Alkaline Phosphatase 62 Creatine Kinase 105 Total Protein 7.1 Albumin 4.3 TSH Urine Color Urine Appearance Urine pH Ur Specific [place] Urine Protein Urine Glucose (UA) Urine Ketones Urine Blood Urine Nitrite Urine Bilirubin Urine Urobilinogen Ur Leukocyte Esterase Urine WBC (Auto) Urine RBC (Auto) U Hyaline Cast (Auto) Squamous Epi Cells Auto Urine Mucus (Auto) Urine Ascorbic Acid COVID-19 Source COVID-19 (NATALIYA) SARS-CoV-2 (PCR) 07/08/19 07/08/19 07/08/19 08:59 09:09 13:00 WBC RBC Hgb Hct MCV MCH MCHC RDW Plt Count Lymph % (Auto) Stanley % (Auto) Eos % (Auto) Baso % (Auto) Absolute Neuts (auto) Absolute Lymphs (auto) Absolute Monos (auto) Absolute Eos (auto) Absolute Basos (auto) Seg Neutrophils % PT INR Sodium Potassium Chloride Carbon Dioxide Anion Gap BUN Creatinine Est GFR ( Amer) Est GFR (MDRD) Non-Af Glucose Calcium Total Bilirubin Direct Bilirubin Neonat Total Bilirubin Neonat Direct Bilirubin Neonat Indirect Bili AST ALT Alkaline Phosphatase Creatine Kinase Total Protein Albumin TSH 1.76 Urine Color YELLOW Urine Appearance CLEAR Urine pH 6.0 Ur Specific [place] 1.010 Urine Protein NEGATIVE Urine Glucose (UA) NEGATIVE Urine Ketones NEGATIVE Urine Blood NEGATIVE Urine Nitrite NEGATIVE Urine Bilirubin NEGATIVE Urine Urobilinogen NEGATIVE Ur Leukocyte Esterase NEGATIVE Urine WBC (Auto) 1 Urine RBC (Auto) 2 U Hyaline Cast (Auto) 1 Squamous Epi Cells Auto <1 Urine Mucus (Auto) RARE Urine Ascorbic Acid NEGATIVE COVID-19 Source Cancelled COVID-19 (NATALIYA) Cancelled SARS-CoV-2 (PCR) 07/08/19 13:00 WBC RBC Hgb Hct MCV MCH MCHC RDW Plt Count Lymph % (Auto) Stanley % (Auto) Eos % (Auto) Baso % (Auto) Absolute Neuts (auto) Absolute Lymphs (auto) Absolute Monos (auto) Absolute Eos (auto) Absolute Basos (auto) Seg Neutrophils % PT INR Sodium Potassium Chloride Carbon Dioxide Anion Gap BUN Creatinine Est GFR ( Amer) Est GFR (MDRD) Non-Af Glucose Calcium Total Bilirubin Direct Bilirubin Neonat Total Bilirubin Neonat Direct Bilirubin Neonat Indirect Bili AST ALT Alkaline Phosphatase Creatine Kinase Total Protein Albumin TSH Urine Color Urine Appearance Urine pH Ur Specific [place] Urine Protein Urine Glucose (UA) Urine Ketones Urine Blood Urine Nitrite Urine Bilirubin Urine Urobilinogen Ur Leukocyte Esterase Urine WBC (Auto) Urine RBC (Auto) U Hyaline Cast (Auto) Squamous Epi Cells Auto Urine Mucus (Auto) Urine Ascorbic Acid COVID-19 Source COVID-19 (NATALIYA) SARS-CoV-2 (PCR) NEGATIVE Hip/Pelvis X-Ray 07/08/19 00:00 IMPRESSION: Subcapital right hip fracture with resulting varus deformity. Chest X-Ray 07/08/19 09:02 IMPRESSION: NO ACUTE RADIOGRAPHIC FINDING IN THE CHEST. Elbow X-Ray 07/08/19 09:02 IMPRESSION: NEGATIVE STUDY OF THE RIGHT ELBOW. NO RADIOGRAPHIC EVIDENCE OF ACUTE INJURY. ECHOCARDIOGRAM: Interpreted by me. The following is the report: Left ventricle cavity is normal in size. Normal left ventricular wall thickness. Normal global wall motion. Visual EF is 65-70%.Normal LVEF, Normal diastolic filling pattern. Calculated EF 66%. Normal LA size. Structurally normal trileaflet aortic valve with no regurgitation noted. No evidence of aortic valve stenosis. No LVOT obstruction. Structurally normal mitral valve with trace regurgitation. No evidence of mitral valve stenosis. E-wave dominant mitral inflow. No Mitral Valve prolapse. Structurally normal tricuspid valve with trace regurgitation. No evidence of tricuspid valve stenosis. No evidence of pulmonary hypertension IVC is normal with a respiratory response of >50%. The IVC is well visualized. No VSD,ASD ,or PFO. No PS or MI. No pericardial effusion. CARDIOLOGY CONSULTATION IMPRESSION/RECOMMENDATION: 1. Fracture of the left hip after accidental fall. For surgical repair. 2. Hypertension: Blood pressure not very well controlled due to the patient's pain would agree with giving the patient hydralazine intravenously as needed. Continue her other current medications. 3. Prolonged QTC on the EKG. The patient has no history of and no suspicion for any pathological prolonged QT syndrome. 4. History of tobacco abuse: Tobacco cessation counseling given 5. Hyperlipidemia: Continue statin 6. Preoperative cardiac risk assessment: The patient will be at low/acceptable cardiac risk for this surgery. Medications reviewed medical regimen and management plan discussed with attending provider on the case. Discussed with Dr. Schmidt the orthopedist. Will follow. Medical decision making is high complexity. 60 minutes spent as patient with more than 50% time spent in direct patient care
[2019-07-08] MEDS ORDERED: HYDRALAZINE HCL INJ/PF 20 MG/1 ML SDV IV PRN (19:02)
[2019-07-08] MEDS: FAMOTIDINE INJ/PF 20 MG/2 ML SDV IV SCH (21:11)
[2019-07-08] MEDS: SIMVASTATIN 10 MG TABLET PO SCH (21:11)
[2019-07-08] MEDS ORDERED: FAMOTIDINE INJ/PF 20 MG/2 ML SDV IV SCH (22:00)
--- NOTE | 2019-07-08 23:43 | EKG REPORT ---
SEVERITY:- ABNORMAL ECG - SINUS RHYTHM PROBABLE LEFT VENTRICULAR HYPERTROPHY BORDERLINE PROLONGED QT INTERVAL : Confirmed by: Octavia Pedro MD 08-Jul-2019 23:42:51
[2019-07-09] MEDS: HYDROMORPHONE HCL INJ/PF 2 MG/ML AMPULE IV PRN ×2 (00:55→07:47)
[2019-07-09] MEDS: HEPARIN SOD (PORCINE) 5,000 UNIT/ML 1 ML VIAL SUBCUT SCH ×3 (05:41→21:19)
[2019-07-09] MEDS ORDERED: GLUCAGON,HUMAN RECOMB 1 MG INJ SUBCUT PRN (05:48)
[2019-07-09] MEDS ORDERED: DEXTROSE 40% GEL 15 GM TUBE PO PRN ×2 (05:48)
[2019-07-09] MEDS ORDERED: DEXTROSE 50%-WATER 25 GM/50 ML DISP.SYRIN IV PRN ×2 (05:48)
[2019-07-09 06:15] LABS: ABSOLUTE LYMPHOCYTES (AUTO) 0.7 10^3/uL (0.5-4.7); ABSOLUTE MONOCYTES (AUTO) 0.9 10^3/uL (0.1-1.4); BASOPHILS % (AUTO) 0.6 % (0-2); EOSINOPHILS % (AUTO) 0.2 % (0-6); HEMATOCRIT 31.6 % (36.0-47.0); HEMOGLOBIN 10.4 g/dL (12.0-15.5); LYMPHOCYTES % (AUTO) 8.9 % (13-45); MEAN CORPUSCULAR HEMOGLOBIN 27.9 pg (27.0-33.4); MEAN CORPUSCULAR HGB CONC 33.1 g/dL (32.0-36.0); MEAN CORPUSCULAR VOLUME 84 fl (80-97); MONOCYTES % (AUTO) 11.4 % (3-13); PLATELET COUNT 254 10^3/uL (150-450); RED BLOOD COUNT 3.75 10^6/uL (3.72-5.28); RED CELL DISTRIBUTION WIDTH 17.7 % (11.5-14.0); SEGMENTED NEUTROPHILS % (AUTO) 78.9 % (42-78); TOTAL CELLS COUNTED % (AUTO) 100 %; WHITE BLOOD COUNT 7.6 10^3/uL (4.0-10.5)
[2019-07-09 07:20] LABS: ANION GAP 12 (5-19); BLOOD UREA NITROGEN 8 mg/dL (7-20); CARBON DIOXIDE 21 mmol/L (22-30); CHLORIDE 98 mmol/L (98-107); GLUCOSE 95 mg/dL (75-110); POTASSIUM 4.1 mmol/L (3.6-5.0)
--- NOTE | 2019-07-09 07:56 | PDOC PROGRESS REPORT ---
Subjective Progress Note for:: 07/09/19 Subjective:: Patient lying in bed comfortably states pain is currently controlled. No issues overnight. Denies chest pain or shortness of breath. Reason For Visit: SUBCAPITAL RIGHT HIP FRACTURE,HYPERTENSION,TOBACCO Physical Exam Vital Signs: Temp Pulse Resp BP Pulse Ox 97.8 F 90 16 137/87 H 95 07/09/19 03:52 07/09/19 03:52 07/09/19 03:52 07/09/19 03:52 07/09/19 03:52 Intake & Output 07/08/19 07/09/19 07/10/19 06:59 06:59 06:59 Intake Total 1110 Output Total 1800 Balance -690 Weight 50 kg Musculoskeletal exam: PRESENT: other - Right lower extremity: Positive logroll. Short/external rotated. Intact plantarflexion/dorsiflexion. No sensory deficits. Dorsalis pedis pulse 2+. Results Laboratory Results: 07/09/19 05:30 07/09/19 06:46 07/08/19 07/08/19 07/08/19 08:59 08:59 08:59 WBC 10.2 RBC 3.63 L Hgb 10.4 L Hct 30.6 L MCV 84 MCH 28.6 MCHC 34.0 RDW 17.7 H Plt Count 294 Seg Neutrophils % 84.6 H Sodium 131.9 L Potassium 3.8 Chloride 99 Carbon Dioxide 25 Anion Gap 8 BUN 8 Creatinine 0.66 Est GFR ( Amer) > 60 Est GFR (Non-Af Amer) Glucose 104 Calcium 9.2 Magnesium Total Bilirubin 0.9 AST 28 Alkaline Phosphatase 62 Total Protein 7.1 Albumin 4.3 TSH 1.76 Urine Color Urine Appearance Urine pH Ur Specific [place] Urine Protein Urine Glucose (UA) Urine Ketones Urine Blood Urine Nitrite Ur Leukocyte Esterase Urine WBC (Auto) Urine RBC (Auto) 07/08/19 07/09/19 07/09/19 09:09 05:30 05:30 WBC 7.6 RBC 3.75 Hgb 10.4 L Hct 31.6 L MCV 84 MCH 27.9 MCHC 33.1 RDW 17.7 H Plt Count 254 Seg Neutrophils % 78.9 H Sodium Cancelled Potassium Cancelled Chloride Cancelled Carbon Dioxide Cancelled Anion Gap Cancelled BUN Cancelled Creatinine Cancelled Est GFR ( Amer) Cancelled Est GFR (Non-Af Amer) Cancelled Glucose Cancelled Calcium Cancelled Magnesium Cancelled Total Bilirubin AST Alkaline Phosphatase Total Protein Albumin TSH Urine Color YELLOW Urine Appearance CLEAR Urine pH 6.0 Ur Specific [place] 1.010 Urine Protein NEGATIVE Urine Glucose (UA) NEGATIVE Urine Ketones NEGATIVE Urine Blood NEGATIVE Urine Nitrite NEGATIVE Ur Leukocyte Esterase NEGATIVE Urine WBC (Auto) 1 Urine RBC (Auto) 2 07/09/19 06:46 WBC RBC Hgb Hct MCV MCH MCHC RDW Plt Count Seg Neutrophils % Sodium 131.1 L Potassium 4.1 Chloride 98 Carbon Dioxide 21 L Anion Gap 12 BUN 8 Creatinine 0.67 Est GFR ( Amer) > 60 Est GFR (Non-Af Amer) Glucose 95 Calcium 9.0 Magnesium 1.5 L Total Bilirubin AST Alkaline Phosphatase Total Protein Albumin TSH Urine Color Urine Appearance Urine pH Ur Specific [place] Urine Protein Urine Glucose (UA) Urine Ketones Urine Blood Urine Nitrite Ur Leukocyte Esterase Urine WBC (Auto) Urine RBC (Auto) 07/08/19 08:59 Creatine Kinase 105 Impressions: Hip/Pelvis X-Ray 07/08/19 00:00 IMPRESSION: Subcapital right hip fracture with resulting varus deformity. Chest X-Ray 07/08/19 09:02 IMPRESSION: NO ACUTE RADIOGRAPHIC FINDING IN THE CHEST. Elbow X-Ray 07/08/19 09:02 IMPRESSION: NEGATIVE STUDY OF THE RIGHT ELBOW. NO RADIOGRAPHIC EVIDENCE OF ACUTE INJURY. Assessment & Plan - Diagnosis (1) Fracture of femoral neck, right Qualifiers: Encounter type: initial encounter Fracture type: closed Qualified Code(s): S72.001A - Fracture of unspecified part of neck of right femur, initial encounter for closed fracture Is this a current diagnosis for this admission?: Yes Plan: Patient has been seen by cardiology and considered low risk for operative treatment. At this point we will proceed with right hip hemiarthroplasty risk and benefits have been explained risk include anesthetic complications, excessive bleeding, infection, injury to surrounding nerves, vessels and tendo ns, bruising, healing difficulties, scar formation, hardware complication, posttraumatic arthritis and any unforseen complication. Patient verbalized understanding consented for right hip hemiarthroplasty. - Time Time Spent with patient: Less than 15 minutes
[2019-07-09] MEDS ORDERED: ROCURONIUM BROMIDE INJ 50 MG/5 ML VIAL IV ONE (08:12)
[2019-07-09] MEDS ORDERED: LIDOCAINE 2% INJ-PF (20 MG/ML) 2 ML AMPUL ONE (08:12)
[2019-07-09] MEDS ORDERED: NEOSTIGMINE METHYLSULFATE 10 MG/10 ML VIAL ONE (08:12)
[2019-07-09] MEDS ORDERED: DEXAMETHASONE SOD PHOSPHATE INJ 4 MG/1 ML VIAL ONE (08:12)
[2019-07-09] MEDS ORDERED: GLYCOPYRROLATE 1 MG/5 ML VIAL ONE (08:12)
[2019-07-09] MEDS ORDERED: (PENDING PHARMACY ID) (Pravastatin Sodium [Pravastatin Sodium] 20 MG) PO SCH (10:00)
[2019-07-09] MEDS ORDERED: HYDROMORPHONE HCL INJ/PF 2 MG/ML AMPULE IV PRN (10:54)
[2019-07-09] MEDS ORDERED: HYDROMORPHONE HCL INJ/PF 2 MG/ML AMPULE ONE (14:22)
[2019-07-09] MEDS ORDERED: FENTANYL CITRATE INJ/PF 100 MCG/2 ML AMPUL ONE (14:22)
[2019-07-09] MEDS ORDERED: KETAMINE HCL INJ 500 MG/10 ML VIAL ONE (14:22)
[2019-07-09] MEDS ORDERED: ONDANSETRON HCL INJ/PF 4 MG/2 ML SDV ONE (14:23)
[2019-07-09] MEDS ORDERED: PROPOFOL INJ 200 MG/20 ML VIAL IV ONE (14:23)
[2019-07-09] MEDS ORDERED: MIDAZOLAM 2 MG/2 ML INJ ONE (14:23)
[2019-07-09] MEDS ORDERED: THROMBIN (BOVINE) TOPICAL 5000 UNIT VIAL ONE (15:06)
[2019-07-09] MEDS ORDERED: BACITRACIN INJ 50,000 UNIT VIAL ONE (15:06)
[2019-07-09] MEDS ORDERED: BUPIVACAINE INJ/PF LIPOSOME/PF 266 MG/20 ML SDV ONE (15:07)
[2019-07-09] MEDS ORDERED: BUPIVACAINE HCL 0.5 % INJ/PF 30 ML SDV ONE (15:14)
[2019-07-09] MEDS ORDERED: CEFAZOLIN INJ 1 GM VIAL ONE (15:19)
--- NOTE | 2019-07-09 15:39 | PDOC PROGRESS REPORT ---
Subjective Progress Note for:: 07/09/19 Subjective:: Patient was seen on morning rounds. She was found resting in bed, comfortably, on room air. She reports that her pain is well controlled at present. Forward to her surgical repair with orthopedics this afternoon. Discussed the importance of working with physical therapy as much as possible following her orthopedic repair as her insurance situation will limit her ability to receive rehabilitation services post discharge. Patient is agreeable and appears motivated at this time. She denies fever, chest pain, palpitations, dyspnea, cough, abdominal pain, naus ea and vomiting at this time. She has no questions or concerns. No concerns per nursing. Reason For Visit: SUBCAPITAL RIGHT HIP FRACTURE,HYPERTENSION,TOBACCO Physical Exam Vital Signs: Temp Pulse Resp BP Pulse Ox 97.9 F 79 19 142/84 H 94 07/09/19 10:57 07/09/19 10:57 07/09/19 10:57 07/09/19 10:57 07/09/19 10:57 Intake & Output 07/08/19 07/09/19 07/10/19 06:59 06:59 06:59 Intake Total 1110 0 Output Total 1800 250 Balance -690 -250 Weight 50 kg General appearance: PRESENT: no acute distress, thin, well-developed, well- nourished Head exam: PRESENT: atraumatic, normocephalic Eye exam: PRESENT: conjunctiva pink, EOMI, PERRLA. ABSENT: scleral icterus Mouth exam: PRESENT: moist, tongue midline Respiratory exam: PRESENT: clear to auscultation odette, symmetrical, unlabored. ABSENT: rales, rhonchi, wheezes Cardiovascular exam: PRESENT: RRR. ABSENT: diastolic murmur, rubs, systolic murmur Pulses: PRESENT: normal dorsalis pedis pul Vascular exam: PRESENT: normal capillary refill Rectal exam: PRESENT: deferred Gentrourinary exam: PRESENT: indwelling catheter Extremities exam: PRESENT: full ROM, tenderness - Shortened and externally rotated RLE. ABSENT: calf tenderness, clubbing, pedal edema Neurological exam: PRESENT: alert, awake, oriented to person, oriented to place, oriented to time, oriented to situation, CN II-XII grossly intact. ABSENT: mot or sensory deficit Psychiatric exam: PRESENT: appropriate affect, normal mood. ABSENT: homicidal ideation, suicidal ideation Skin exam: PRESENT: dry, intact, warm. ABSENT: cyanosis, rash Results Laboratory Results: 07/09/19 05:30 07/09/19 06:46 07/09/19 07/09/19 07/09/19 05:30 05:30 06:46 WBC 7.6 RBC 3.75 Hgb 10.4 L Hct 31.6 L MCV 84 MCH 27.9 MCHC 33.1 RDW 17.7 H Plt Count 254 Seg Neutrophils % 78.9 H Sodium Cancelled 131.1 L Potassium Cancelled 4.1 Chloride Cancelled 98 Carbon Dioxide Cancelled 21 L Anion Gap Cancelled 12 BUN Cancelled 8 Creatinine Cancelled 0.67 Est GFR ( Amer) Cancelled > 60 Est GFR (Non-Af Amer) Cancelled Glucose Cancelled 95 Calcium Cancelled 9.0 Magnesium Cancelled 1.5 L 07/08/19 08:59 Creatine Kinase 105 Impressions: Hip/Pelvis X-Ray 07/08/19 00:00 IMPRESSION: Subcapital right hip fracture with resulting varus deformity. Chest X-Ray 07/08/19 09:02 IMPRESSION: NO ACUTE RADIOGRAPHIC FINDING IN THE CHEST. Elbow X-Ray 07/08/19 09:02 IMPRESSION: NEGATIVE STUDY OF THE RIGHT ELBOW. NO RADIOGRAPHIC EVIDENCE OF ACUTE INJURY. Assessment and Plan - Diagnosis (1) Fracture of femoral neck, right Qualifiers: Encounter type: initial encounter Fracture type: closed Qualified Code(s): S72.001A - Fracture of unspecified part of neck of right femur, initial encounter for closed fracture Is this a current diagnosis for this admission?: Yes Plan: Patient is admitted to the medical floor. Orthopedics is consulted; primary management per Dr. Schmidt's expertise. Cardiology was consulted for surgical clearance. Currently receiving Percocet and IV Dilaudid as needed for pain control. Heparin for DVT prophylaxis. Postoperative prophylaxis per Ortho's recommendations. Pepcid for PUD prophylaxis. PT/OT consultation. Discharge planning consulted. (2) Hypertension Is this a current diagnosis for this admission?: Yes Plan: Acceptable blood pressure at present. Continue home dose Amlodipine. PRN IV Hydralazine and Lopressor as needed for blood pressure control. Provide appropriate pain management. Cardiac diet. (3) Laceration of right elbow Qualifiers: Encounter type: initial encounter Qualified Code(s): S51.011A - Laceration without foreign body of right elbow, initial encounter Is this a current diagnosis for this admission?: Yes Plan: Repaired with Steri-Strips per ED provider. Wound care per nursing protocol. (4) Tobacco abuse Is this a current diagnosis for this admission?: Yes Plan: Smoking cessation encouraged; nicotine replacement therapies provided. (5) Abnormal EKG Is this a current diagnosis for this admission?: Yes Plan: Prolonged QTC (513) on EKG. Cardiology was consulted; have provided cardiac clearance for orthopedic procedure. (6) Underweight Is this a current diagnosis for this admission?: Yes Plan: BMI 15.8 Albumin 4.32 Start multivitamin, thiamine, folic acid supplementation. Registered dietitian is consulted. - Time Time Spent with patient: 35 or more minutes Medications reviewed and adjusted accordingly: Yes Anticipated discharge: Home with Homehealth
[2019-07-09] MEDS ORDERED: RINGERS SOLUTION,LACTATED 1,000 ML IV PRN (17:22)
--- NOTE | 2019-07-09 17:49 | Operative Report ---
Operative Report DATE OF SURGERY: 07/09/19 PREOPERATIVE DIAGNOSIS: Right displaced femoral neck fracture POSTOPERATIVE DIAGNOSIS: Same OPERATION: Right hip hemiarthroplasty SURGEON: KENN MAY ANESTHESIA: GA COMPLICATIONS: None ESTIMATED BLOOD LOSS: 100cc PROCEDURE: Indication for above procedure: 59-year-old female who sustained a fall onto her right hip. Patient was unable to ambulate with but was able to crawl to her bed. She subsequently presented to the emergency room 24 hours later where radiographs confirmed right femoral neck fracture. Upon orthopedic consultation we discussed treatment options including operative versus nonoperative intervention after discussing risk and benefits joint decision was made to proceed with operative treatment. Procedure In Detail: Patient was seen and evaluated in the preoperative holding area. The RIGHT lower extremity was initialized and marked. Patient received 2g of Ancef IV for bacterial prophylaxis. Patient was taken back to the operative room where transferred to the operative table and placed under anesthesia. Once they were adequately anesthetized patient was placed in the lateral position an axillary roll was placed in nonoperative left lower extremity was carefully padded.. A surgical team debriefing was performed ensuring all instrumentation was available, the surgical procedure was discussed with possible concerns reviewed. The upper extremity was prepped with chlor prep draped in a sterile fashion. A timeout was done identifying correct patient, procedure and extremity everyone in attendance agree with this and verbalized no concerns. A posterior skin incision was made just posterior to the greater trochanter. Dissection was done down to the gluteus rob and iliotibial band fascia this was split in line with the skin incision. Any peripheral vasculature was carefully coagulated. A Charley retractor was placed after palpation of the s ciatic nerve and the sciatic nerve was safely retracted from the wound throughout the entirety of the case. I then identified the external rotators with the use of a Bovie this was carefully elevated off along with underlying capsule from the neck in a T-shaped capsulotomy was made just superior to the piriformis and tagged The femoral neck was identified and approximately 1 fingerbreadth above the lesser trochanter a freshening cut was made. Any excess bone remaining was carefully removed. I then used the corkscrew to remove the femoral head from the acetabulum which was then measured on the back table. The excess bone was removed and removed the scopes irrigated with normal saline. I then trial the femoral head according to what was measured on the back table and got good fit within the acetabulum. I then turned my attention to femoral preparation. A box osteotome was first used to get laterally along the trochanter. I then used the lateralizing reamer to avoid medialization of the stem and ultimately varus malalignment. I then began broaching with a 0 broach and broached up to a #6 broach which was somewhat countersunk. I then utilized the calcar reamer reamed out the appropriate level. I then broached up to a #7 broach which I got good proximal fit. I began trialing with a #0 neck length and had good stability through flexion, internal rotation and adduction. There is no instability with external rotation. Leg lengths were found to be compatible and equal to the other side. At this point the trial implants were removed. The wound was irrigated with nor mal saline. I then implanted my appropriate size stem the good peripheral fit and placement at my predetermined broach level. I then implanted the final unipolar head. The hip was reduced once again measures stability and good stability throughout all range of motion with no palpable impingement. Leg lengths were equivalent to the nonoperative side. The wound was copiously irrigated with normal saline. Utilizing a #5 FiberWire suture I secured the capsule posteriorly into the trochanter. I then irrigated once again with normal saline. The gluteus rob and tensor fascia kleber was closed with a running 0 PDS suture. I then injected Exparel in multiple locations throughout the subcutaneous tissues, hip wound and the fascia. I then closed the subcutaneous tissues with interrupted 2 -0 Vicryl suture. The skin was closed a running 3-0 subcuticular Monocryl suture this was then reinforced with Dermabond and Steri-Strips. A sterile Tegaderm dressing was then placed. Sponge counts, instrument counts and needle counts were correct. Patient was then awoken from anesthesia laid supine at which point her leg lengths were once again checked and found to be equal to the nonoperative extremity. Patient was then transferred to the operating stretcher and placed in an abduction pillow. The was no intraoperative complications patient tolerated procedure well was stable to PACU. Postoperative plan: Patient will be started on Lovenox for DVT prophylaxis. She will begin physical therapy on postop day #1. Implants: Accolade II Size 6, 48 Unipolar Head, +4 Neck Length
[2019-07-09] MEDS ORDERED: CEFAZOLIN 2 GM/D5W RTU 50 ML IV SCH (18:00)
--- NOTE | 2019-07-09 18:25 | RADIOLOGY REPORT (SQ) ---
EXAM DESCRIPTION: HIP RIGHT AP/LATERAL IMAGES COMPLETED DATE/TIME: 07/09/2019 6:00 pm REASON FOR STUDY: Post Op Long Cassette in PACU COMPARISON: None. NUMBER OF VIEWS: Three view(s). TECHNIQUE: Digital radiographic images of the right hip post-procedure. LIMITATIONS: None. FINDINGS: BONES: No worrisome or unexpected findings post-procedure. DEVICE: Total right hip replacement. Components of the device in appropriate location. SOFT TISSUES: No worrisome findings. Expected postoperative soft tissue changes. IMPRESSION: 1. SATISFACTORY POSTOPERATIVE RIGHT HIP. TECHNICAL DOCUMENTATION: JOB ID: [id number] 2010 [employer]- All Rights Reserved Reading location - IP/workstation name: [email or web address]
[2019-07-09] MEDS: CEFAZOLIN SODIUM 2 GM in DEXTROSE 5%-WATER 100 ML IV SCH (21:18)
[2019-07-09] MEDS: FAMOTIDINE INJ/PF 20 MG/2 ML SDV IV SCH (21:18)
[2019-07-09] MEDS: SIMVASTATIN 10 MG TABLET PO SCH (21:19)
--- NOTE | 2019-07-09 22:56 | Progress Note ---
Provider Note Provider Note: CARDIOLOGY PROGRESS NOTE by Dr. Octavia Pedro on 07/09/2019. SUBJECTIVE: Patient is undergone left hip surgery/repair without any untoward events. She is in a lying in bed with no complaints of chest pain or discomfort. There is no shortness of breath. There is no PND orthopnea. She denies any palpitations or near syncope or syncope. There is no symptoms of TIA CVA. PHYSICAL EXAMINATION: The patient is a frail build but appears to be well- nourished in no acute distress. Selected Entries 07/09/19 07/09/19 19:05 19:35 Temperature 97.8 F Pulse Rate 59 L Respiratory 16 Rate Blood Pressure 126/73 H Blood Pressure 135/71 H [Left 1] Blood Pressure 92 Mean [Left 1] Blood Pressure Supine Position [Left 1] O2 Sat by Pulse 94 Oximetry Oxygen Delivery Nasal Cannula Method ( includes room air) Oxygen Flow 2 Rate HEAD: Head is atraumatic normocephalic. EYES: Pupils are equal round regular reactive light accommodation extraocular movements are normal. There is no conjunctival pallor. There is no scleral icterus. EARS: Tympanic memories are intact external auditory canals are clear. NOSE: There is no deviated nasal septum. There is no inflammation of these mucous membrane. MOUTH: Mucous membranes of mouth are moist tongue is moist there is no ulcers there is no bleeding from the gums. THROAT: There is no redness of the oropharynx. There is no exudates. NECK: Supple there is no JVD carotids are equal there is no bruit. There is no lymphadenopathy. There is no goiter. There is no accessory muscle respiration use. Trachea central. LUNGS: Is clear to auscultation percussion. HEART: S1-S2 is heard there is no S3 gallop there is no S4 gallop. There is mild mitral murmurs of mitral regurgitation tricuspid regurgitation present. There is no aortic stenosis or aortic regurgitation. There is no rub. ABDOMEN: Soft nontender there is no paraspinal megaly. Bowel sounds are well heard. EXTREMITIES: Left hip is tender. Left hip dressing is dry. Peripheral pulses are well felt. There is no femoral bruits. There is no pedal edema. There is no DVT or cellulitis. There is no cyanosis or clubbing. DIRECTOR E LEARNING: The patient is conscious awake alert oriented x3 with no focal deficits. PSYCHIATRIC problem the patient judgment insight are intact her affect is normal. Labs- All tests 24 hr 07/09/19 07/09/19 07/09/19 05:30 05:30 05:30 WBC 7.6 RBC 3.75 Hgb 10.4 L Hct 31.6 L MCV 84 MCH 27.9 MCHC 33.1 RDW 17.7 H Plt Count 254 Lymph % (Auto) 8.9 L [place] % (Auto) 11.4 Eos % (Auto) 0.2 Baso % (Auto) 0.6 Absolute Neuts (auto) 6.0 Absolute Lymphs (auto) 0.7 Absolute Monos (auto) 0.9 Absolute Eos (auto) 0.0 Absolute Basos (auto) 0.0 Seg Neutrophils % 78.9 H APTT 31.0 Sodium Cancelled Potassium Cancelled Chloride Cancelled Carbon Dioxide Cancelled Anion Gap Cancelled BUN Cancelled Creatinine Cancelled Est GFR ( Amer) Cancelled Est GFR (Non-Af Amer) Cancelled Est GFR (MDRD) Non-Af Cancelled Glucose Cancelled Calcium Cancelled Magnesium Cancelled EGFR Cancelled Blood Type Antibody Screen 07/09/19 07/09/19 06:46 15:41 WBC RBC Hgb Hct MCV MCH MCHC RDW Plt Count Lymph % (Auto) [place] % (Auto) Eos % (Auto) Baso % (Auto) Absolute Neuts (auto) Absolute Lymphs (auto) Absolute Monos (auto) Absolute Eos (auto) Absolute Basos (auto) Seg Neutrophils % APTT Sodium 131.1 L Potassium 4.1 Chloride 98 Carbon Dioxide 21 L Anion Gap 12 BUN 8 Creatinine 0.67 Est GFR ( Amer) > 60 Est GFR (Non-Af Amer) Est GFR (MDRD) Non-Af > 60 Glucose 95 Calcium 9.0 Magnesium 1.5 L EGFR Blood Type A POSITIVE Antibody Screen NEGATIVE Hip/Pelvis X-Ray 07/08/19 00:00 IMPRESSION: Subcapital right hip fracture with resulting varus deformity. Chest X-Ray 07/08/19 09:02 IMPRESSION: NO ACUTE RADIOGRAPHIC FINDING IN THE CHEST. Elbow X-Ray 07/08/19 09:02 IMPRESSION: NEGATIVE STUDY OF THE RIGHT ELBOW. NO RADIOGRAPHIC EVIDENCE OF ACUTE INJURY. Hip/Pelvis X-Ray 07/09/19 17:22 IMPRESSION: 1. SATISFACTORY POSTOPERATIVE RIGHT HIP. IMPRESSION/RECOMMENDATION: 1. Fracture of the left hip after accidental fall. S/p surgical repair. 2. Hypertension: Blood pressure not very well controlled due to the patient's pain would agree with giving the patient hydralazine intravenously as needed. Continue her other current medications. 3. Prolonged QTC on the EKG. The patient has no history of and no suspicion for any pathological prolonged QT syndrome. 4. History of tobacco abuse: Tobacco cessation counseling given 5. Hyperlipidemia: Continue statin 6. Mild hypomagnesemia: Recommend replacement. 7. The patient has coronary artery disease risk factors namely age, hypertension, and hyperlipidemia. Would recommend outpatient IV Lexiscan Cardiolite stress test or a exercise treadmill stress Cardiolite. This can be done as an outpatient. Medications reviewed. Medical regimen management plan discussed with attending provider on the case. Medical decision making is of moderate complexity. 40 minutes spent on the patient was in 50% of time spent in direct patient care. Cardiac status is stable. Will sign off
[2019-07-10] MEDS: AMLODIPINE BESYLATE 5 MG TABLET PO SCH ×2 (00:02→09:50)
[2019-07-10] MEDS: DOCUSATE SODIUM 100 MG CAPSULE PO SCH ×2 (00:02→09:51)
[2019-07-10] MEDS: FAMOTIDINE INJ/PF 20 MG/2 ML SDV IV SCH ×3 (00:03→21:50)
[2019-07-10] MEDS: OXYCODONE-ACETAMINOPHEN 5-325 MG TABLET PO PRN ×3 (00:09→19:50)
[2019-07-10] MEDS: CEFAZOLIN SODIUM 2 GM in DEXTROSE 5%-WATER 100 ML IV SCH ×3 (02:21→16:00)
[2019-07-10] MEDS: HEPARIN SOD (PORCINE) 5,000 UNIT/ML 1 ML VIAL SUBCUT SCH ×3 (05:18→21:46)
[2019-07-10 06:06] LABS: HEMATOCRIT 23.6 % (36.0-47.0); MEAN CORPUSCULAR HEMOGLOBIN 28.5 pg (27.0-33.4); MEAN CORPUSCULAR HGB CONC 33.2 g/dL (32.0-36.0); MEAN CORPUSCULAR VOLUME 86 fl (80-97); PLATELET COUNT 205 10^3/uL (150-450); RED BLOOD COUNT 2.76 10^6/uL (3.72-5.28); RED CELL DISTRIBUTION WIDTH 17.1 % (11.5-14.0); WHITE BLOOD COUNT 7.3 10^3/uL (4.0-10.5)
[2019-07-10 06:16] LABS: ANION GAP 6 (5-19); BLOOD UREA NITROGEN 10 mg/dL (7-20); CALCIUM 8.5 mg/dL (8.4-10.2); CARBON DIOXIDE 24 mmol/L (22-30); CHLORIDE 102 mmol/L (98-107); GLUCOSE 114 mg/dL (75-110); POTASSIUM 4.2 mmol/L (3.6-5.0)
[2019-07-10 06:29] LABS: HEMOGLOBIN 7.8 g/dL (12.0-15.5)
[2019-07-10] MEDS: FOLIC ACID 1 MG TABLET PO SCH (09:51)
[2019-07-10] MEDS: THIAMINE HCL 100 MG TABLET PO SCH (09:51)
[2019-07-10] MEDS: MULTIVITAMIN TABLET PO SCH (09:52)
--- NOTE | 2019-07-10 10:20 | PDOC PROGRESS REPORT ---
Subjective Progress Note for:: 07/10/19 Subjective:: Patient is postop day #1 status post fixation of hip fracture Reason For Visit: SUBCAPITAL RIGHT HIP FRACTURE,HYPERTENSION,TOBACCO Physical Exam Vital Signs: Temp Pulse Resp BP Pulse Ox 99.1 F 76 16 121/75 97 07/10/19 07:26 07/10/19 07:26 07/10/19 07:26 07/10/19 07:26 07/10/19 07:26 Intake & Output 07/09/19 07/10/19 07/11/19 06:59 06:59 06:59 Intake Total 1110 5710 Output Total 1800 4150 Balance -690 1560 Weight 50 kg 50.2 kg 50.2 kg Additional comments: Patient has intact dressing on the right lateral hip patient has 2+ dorsalis pedis pulse bilateral lower extremities no calf tenderness grossly neurovascular intact getting up with physical therapy. Results Laboratory Results: 07/10/19 05:47 07/10/19 05:47 07/09/19 07/10/19 07/10/19 15:41 05:47 05:47 WBC 7.3 RBC 2.76 L Hgb 7.8 L D Hct 23.6 L MCV 86 MCH 28.5 MCHC 33.2 RDW 17.1 H Plt Count 205 Sodium 131.5 L Potassium 4.2 Chloride 102 Carbon Dioxide 24 Anion Gap 6 BUN 10 Creatinine 0.59 Est GFR ( Amer) > 60 Glucose 114 H Calcium 8.5 Blood Type A POSITIVE Antibody Screen NEGATIVE 07/08/19 08:59 Creatine Kinase 105 Impressions: Chest X-Ray 07/08/19 09:02 IMPRESSION: NO ACUTE RADIOGRAPHIC FINDING IN THE CHEST. Elbow X-Ray 07/08/19 09:02 IMPRESSION: NEGATIVE STUDY OF THE RIGHT ELBOW. NO RADIOGRAPHIC EVIDENCE OF ACUTE INJURY. Hip/Pelvis X-Ray 07/09/19 17:22 IMPRESSION: 1. SATISFACTORY POSTOPERATIVE RIGHT HIP. Assessment & Plan - Diagnosis (1) Fracture of femoral neck, right Qualifiers: Encounter type: initial encounter Fracture type: closed Qualified Code(s): S72.001A - Fracture of unspecified part of neck of right femur, initial encounter for closed fracture - Plan Summary Plan Summary: I discussed with the hospitalist team the fact that her hemoglobin is a little bit low this morning they can recheck it this afternoon at a different site and if it is low they will transfuse her otherwise she will progress with physical therapy.
[2019-07-10] MEDS: NICOTINE 7 MG/24 HR PATCH.TD24 TD SCH (10:23)
[2019-07-10 13:52] LABS: HEMATOCRIT 21.3 % (36.0-47.0); MEAN CORPUSCULAR HEMOGLOBIN 28.2 pg (27.0-33.4); MEAN CORPUSCULAR HGB CONC 33.5 g/dL (32.0-36.0); MEAN CORPUSCULAR VOLUME 84 fl (80-97); PLATELET COUNT 221 10^3/uL (150-450); RED BLOOD COUNT 2.53 10^6/uL (3.72-5.28); RED CELL DISTRIBUTION WIDTH 17.3 % (11.5-14.0)
[2019-07-10 13:54] LABS: HEMOGLOBIN 7.1 g/dL (12.0-15.5)
[2019-07-10] MEDS ORDERED: NORMAL SALINE 250 ML IV PRN ×2 (14:33)
--- NOTE | 2019-07-10 15:07 | PDOC PROGRESS REPORT ---
Subjective Progress Note for:: 07/10/19 Subjective:: Patient was seen on morning rounds. She was found resting in the recliner, comfortably, on room air. She has just completed physical therapy and was ambulatory w/ [facility] in hallway this morning. She reports slight worsening of pain following PT, but otherwise states she is doing well. She denies fever, chest pain, palpitations, dyspnea, cough, abdominal pain, naus ea and vomiting at this time. She has no questions or concerns. No concerns per nursing. Reason For Visit: SUBCAPITAL RIGHT HIP FRACTURE,HYPERTENSION,TOBACCO Physical Exam Vital Signs: Temp Pulse Resp BP Pulse Ox 98.6 F 83 18 114/74 97 07/10/19 11:05 07/10/19 11:05 07/10/19 11:05 07/10/19 11:05 07/10/19 11:05 Intake & Output 07/09/19 07/10/19 07/11/19 06:59 06:59 06:59 Intake Total 1110 5710 238 Output Total 1800 4150 Balance -690 1560 238 Weight 50 kg 50.2 kg 50.2 kg General appearance: PRESENT: no acute distress, cooperative, thin, well- developed Head exam: PRESENT: atraumatic, normocephalic Eye exam: PRESENT: conjunctiva pink, EOMI, PERRLA. ABSENT: scleral icterus Mouth exam: PRESENT: moist, tongue midline Respiratory exam: PRESENT: clear to auscultation odette, symmetrical, unlabored. ABSENT: rales, rhonchi, wheezes Cardiovascular exam: PRESENT: RRR, +S1, +S2. ABSENT: diastolic murmur, rubs, systolic murmur Pulses: PRESENT: normal dorsalis pedis pul Vascular exam: PRESENT: normal capillary refill GI/Abdominal exam: PRESENT: normal bowel sounds, soft. ABSENT: distended, guarding, mass, organolmegaly, rebound, tenderness Rectal exam: PRESENT: deferred Extremities exam: PRESENT: tenderness - Rt hip. ABSENT: calf tenderness, clubbing, pedal edema Neurological exam: PRESENT: alert, awake, oriented to person, oriented to place, oriented to time, oriented to situation, CN II-XII grossly intact. ABSENT: motor sensory deficit Psychiatric exam: PRESENT: appropriate affect, normal mood. ABSENT: homicidal ideation, suicidal ideation Skin exam: PRESENT: dry, warm. ABSENT: cyanosis, intact, rash Results Laboratory Results: 07/10/19 13:38 07/10/19 05:47 07/09/19 07/10/19 07/10/19 15:41 05:47 05:47 WBC 7.3 RBC 2.76 L Hgb 7.8 L D Hct 23.6 L MCV 86 MCH 28.5 MCHC 33.2 RDW 17.1 H Plt Count 205 Sodium 131.5 L Potassium 4.2 Chloride 102 Carbon Dioxide 24 Anion Gap 6 BUN 10 Creatinine 0.59 Est GFR ( Amer) > 60 Glucose 114 H Calcium 8.5 Blood Type A POSITIVE Antibody Screen NEGATIVE 07/10/19 13:38 WBC 7.0 RBC 2.53 L Hgb 7.1 L Hct 21.3 L MCV 84 MCH 28.2 MCHC 33.5 RDW 17.3 H Plt Count 221 Sodium Potassium Chloride Carbon Dioxide Anion Gap BUN Creatinine Est GFR ( Amer) Glucose Calcium Blood Type Antibody Screen 07/08/19 08:59 Creatine Kinase 105 Impressions: Chest X-Ray 07/08/19 09:02 IMPRESSION: NO ACUTE RADIOGRAPHIC FINDING IN THE CHEST. Elbow X-Ray 07/08/19 09:02 IMPRESSION: NEGATIVE STUDY OF THE RIGHT ELBOW. NO RADIOGRAPHIC EVIDENCE OF ACUTE INJURY. Hip/Pelvis X-Ray 07/09/19 17:22 IMPRESSION: 1. SATISFACTORY POSTOPERATIVE RIGHT HIP. Assessment and Plan - Diagnosis (1) Fracture of femoral neck, right Qualifiers: Encounter type: initial encounter Fracture type: closed Qualified Co de(s): S72.001A - Fracture of unspecified part of neck of right femur, initial encounter for closed fracture Is this a current diagnosis for this admission?: Yes Plan: POD#1 Rt hip Hemiarthroplasty Patient is admitted to the medical floor. Orthopedics is consulted; primary management per Dr. Schmidt's expertise. Cardiology was consulted for surgical clearance. Currently receiving Percocet and IV Dilaudid as needed for pain control. Postoperative DVT prophylaxis per Ortho's recommendations; currently on Lovenox. Pepcid for PUD prophylaxis. PT/OT consultation. Dr. Alex Gipson consulted for consideration of Acute Rehab. Discharge planning consulted. (2) Acute blood loss as cause of postoperative anemia Is this a current diagnosis for this admission?: Yes Plan: Hbg 10.4-> 10.4-> 7.8-> 7.1 Operative report indicates 100 ml blood loos. Surgical site with slight edema and ecchymosis Will transfuse 2 units PRBC. Patient does confirm history of iron deficiency anemia and has received iron infusions in the past. Will add anemia panel to am lab work. She may benefit from additional iron replacement prior to discharge. (3) Hypertension Is this a current diagnosis for this admission?: Yes Plan: Acceptable blood pressure at present. Continue home dose Amlodipine. PRN IV Hydralazine and Lopressor as needed for blood pressure control. Provide appropriate pain management. Cardiac diet. (4) Laceration of right elbow Qualifiers: Encounter type: initial encounter Qualified Code(s): S51.011A - Laceration without foreign body of right elbow, initial encounter Is this a current diagnosis for this admission?: Yes Plan: Repaired with Steri-Strips per ED provider. Wound care per nursing protocol. (5) Tobacco abuse Is this a current diagnosis for this admission?: Yes Plan: Smoking cessation encouraged; nicotine replacement therapies provided. (6) Abnormal EKG Is this a current diagnosis for this admission?: Yes Plan: Prolonged QTC (513) on EKG. Cardiology was consulted; have provided cardiac clearance for orthopedic pro cedure. (7) Underweight Is this a current diagnosis for this admission?: Yes Plan: BMI 15.8 Albumin 4.32 Start multivitamin, thiamine, folic acid supplementation. Registered dietitian is consulted. - Time Time Spent with patient: 35 or more minutes Medications reviewed and adjusted accordingly: Yes Anticipated discharge: Acute Rehab Within: within 72 hours
[2019-07-10 15:18] LABS: ABSOLUTE RETICS # 0.034 10^6/uL (0.028-0.122); RETICULOCYTE COUNT (AUTO) 1.33 % (0.66-2.85)
[2019-07-10] MEDS: HYDROMORPHONE HCL INJ/PF 2 MG/ML AMPULE IV PRN (15:27)
[2019-07-10 15:34] LABS: IRON(TIBC) 24.7 ug/dL (37-170)
[2019-07-10 16:39] LABS: FOLATE 4.11 ng/mL (>2.76)
[2019-07-10] MEDS: SIMVASTATIN 10 MG TABLET PO SCH (21:46)
[2019-07-11] MEDS: CEFAZOLIN SODIUM 2 GM in DEXTROSE 5%-WATER 100 ML IV SCH ×5 (00:18→21:11)
[2019-07-11 03:59] LABS: ABSOLUTE LYMPHOCYTES (AUTO) 1.4 10^3/uL (0.5-4.7); ABSOLUTE MONOCYTES (AUTO) 1.2 10^3/uL (0.1-1.4); BASOPHILS % (AUTO) 0.6 % (0-2); EOSINOPHILS % (AUTO) 0.5 % (0-6); LYMPHOCYTES % (AUTO) 20.2 % (13-45); MEAN CORPUSCULAR HEMOGLOBIN 29.2 pg (27.0-33.4); MEAN CORPUSCULAR HGB CONC 34.5 g/dL (32.0-36.0); MEAN CORPUSCULAR VOLUME 85 fl (80-97); MONOCYTES % (AUTO) 18.4 % (3-13); PLATELET COUNT 190 10^3/uL (150-450); RED CELL DISTRIBUTION WIDTH 15.8 % (11.5-14.0); SEGMENTED NEUTROPHILS % (AUTO) 60.3 % (42-78); TOTAL CELLS COUNTED % (AUTO) 100 %; WHITE BLOOD COUNT 6.7 10^3/uL (4.0-10.5)
[2019-07-11 04:00] LABS: HEMOGLOBIN 9.6 g/dL (12.0-15.5)
[2019-07-11 04:19] LABS: ANION GAP 5 (5-19); BLOOD UREA NITROGEN 8 mg/dL (7-20); CALCIUM 8.1 mg/dL (8.4-10.2); CHOLESTEROL 123.64 mg/dL (0-200); GLUCOSE 112 mg/dL (75-110); POTASSIUM 3.6 mmol/L (3.6-5.0); TRIGLYCERIDES 131 mg/dL (<150)
[2019-07-11 04:24] LABS: CARBON DIOXIDE 25 mmol/L (22-30); CHLORIDE 104 mmol/L (98-107)
[2019-07-11 04:30] LABS: DIRECT LDL 52 mg/dL (<100)
[2019-07-11] MEDS: OXYCODONE-ACETAMINOPHEN 5-325 MG TABLET PO PRN ×3 (05:46→18:03)
[2019-07-11] MEDS: HEPARIN SOD (PORCINE) 5,000 UNIT/ML 1 ML VIAL SUBCUT SCH ×3 (05:50→21:12)
[2019-07-11] MEDS ORDERED: CYANOCOBALAMIN (VITAMIN B-12) INJ 1000 MCG/1 ML VIAL IM ONE (09:30)
[2019-07-11] MEDS: FAMOTIDINE INJ/PF 20 MG/2 ML SDV IV SCH ×2 (10:14→21:12)
[2019-07-11] MEDS: MULTIVITAMIN TABLET PO SCH (10:15)
[2019-07-11] MEDS: THIAMINE HCL 100 MG TABLET PO SCH (10:15)
[2019-07-11] MEDS: AMLODIPINE BESYLATE 5 MG TABLET PO SCH (10:15)
[2019-07-11] MEDS: FOLIC ACID 1 MG TABLET PO SCH (10:15)
[2019-07-11] MEDS: DOCUSATE SODIUM 100 MG CAPSULE PO SCH (10:15)
[2019-07-11] MEDS: FERROUS SULFATE 325 MG TABLET PO SCH ×2 (10:15→18:04)
[2019-07-11] MEDS: NICOTINE 7 MG/24 HR PATCH.TD24 TD SCH (10:16)
[2019-07-11 15:08] LABS: HEMATOCRIT 31.6 % (36.0-47.0); HEMOGLOBIN 10.9 g/dL (12.0-15.5); MEAN CORPUSCULAR HEMOGLOBIN 29.3 pg (27.0-33.4); MEAN CORPUSCULAR HGB CONC 34.4 g/dL (32.0-36.0); MEAN CORPUSCULAR VOLUME 85 fl (80-97); PLATELET COUNT 225 10^3/uL (150-450); RED BLOOD COUNT 3.71 10^6/uL (3.72-5.28); RED CELL DISTRIBUTION WIDTH 16.5 % (11.5-14.0); WHITE BLOOD COUNT 8.9 10^3/uL (4.0-10.5)
--- NOTE | 2019-07-11 17:32 | PDOC PROGRESS REPORT ---
Subjective Progress Note for:: 07/11/19 Subjective:: Patient was seen on afternoon rounds. She was found resting in bed, comfortably, on room air. SDid well with PT again; walked approximately 150 feet w/ walker and assistance. She denies fever, chest pain, palpitations, dyspnea, cough, abdominal pain, nausea and vomiting at this time. She has no questions or concerns. No concerns per nursing. Reason For Visit: SUBCAPITAL RIGHT HIP FRACTURE,HYPERTENSION,TOBACCO Physical Exam Vital Signs: Temp Pulse Resp BP Pulse Ox 98.0 F 74 16 139/74 H 100 07/11/19 14:47 07/11/19 14:47 07/11/19 14:47 07/11/19 14:47 07/11/19 14:47 Intake & Output 07/10/19 07/11/19 07/12/19 06:59 06:59 06:59 Intake Total 5710 1828 460 Output Total 4150 450 Balance 1560 1378 460 Weight 50.2 kg 50.2 kg General appearance: PRESENT: no acute distress, cooperative, thin, well-develop ed Head exam: PRESENT: atraumatic, normocephalic Eye exam: PRESENT: conjunctiva pink, EOMI, PERRLA. ABSENT: scleral icterus Ear exam: PRESENT: normal external ear exam Mouth exam: PRESENT: moist, tongue midline Neck exam: ABSENT: carotid bruit, JVD, lymphadenopathy, thyromegaly Respiratory exam: PRESENT: clear to auscultation odette, symmetrical, unlabored. ABSENT: rales, rhonchi, wheezes Cardiovascular exam: PRESENT: RRR, +S1, +S2. ABSENT: diastolic murmur, rubs, systolic murmur Pulses: PRESENT: normal dorsalis pedis pul Vascular exam: PRESENT: normal capillary refill Gentrourinary exam: ABSENT: indwelling catheter Extremities exam: PRESENT: full ROM, tenderness - rt hip. ABSENT: calf tenderness, clubbing, pedal edema Musculoskeletal exam: PRESENT: ambulatory - w/ walker and assist Neurological exam: PRESENT: alert, awake, oriented to person, oriented to place, oriented to time, oriented to situation, CN II-XII grossly intact. ABSENT: motor sensory deficit Psychiatric exam: PRESENT: appropriate affect, normal mood. ABSENT: homicidal ideation, suicidal ideation Skin exam: PRESENT: dry, warm. ABSENT: cyanosis, rash Results Laboratory Results: 07/11/19 14:52 07/11/19 03:50 07/09/19 07/11/19 07/11/19 15:41 03:50 03:50 WBC 6.7 RBC 3.30 L Hgb 9.6 L D Hct 28.0 L MCV 85 MCH 29.2 MCHC 34.5 RDW 15.8 H Plt Count 190 Seg Neutrophils % 60.3 Sodium 133.5 L Potassium 3.6 Chloride 104 Carbon Dioxide 25 Anion Gap 5 BUN 8 Creatinine 0.59 Est GFR ( Amer) > 60 Glucose 112 H Calcium 8.1 L Triglycerides 131 Cholesterol 123.64 LDL Cholesterol Direct 52 VLDL Cholesterol 26.0 HDL Cholesterol 55 Blood Type A POSITIVE Antibody Screen NEGATIVE 07/11/19 14:52 WBC 8.9 RBC 3.71 L Hgb 10.9 L Hct 31.6 L MCV 85 MCH 29.3 MCHC 34.4 RDW 16.5 H Plt Count 225 Seg Neutrophils % Sodium Potassium Chloride Carbon Dioxide Anion Gap BUN Creatinine Est GFR ( Amer) Glucose Calcium Triglycerides Cholesterol LDL Cholesterol Direct VLDL Cholesterol HDL Cholesterol Blood Type Antibody Screen 07/08/19 08:59 Creatine Kinase 105 Impressions: Chest X-Ray 07/08/19 09:02 IMPRESSION: NO ACUTE RADIOGRAPHIC FINDING IN THE CHEST. Elbow X-Ray 07/08/19 09:02 IMPRESSION: NEGATIVE STUDY OF THE RIGHT ELBOW. NO RADIOGRAPHIC EVIDENCE OF ACUTE INJURY. Hip/Pelvis X-Ray 07/09/19 17:22 IMPRESSION: 1. SATISFACTORY POSTOPERATIVE RIGHT HIP. Assessment and Plan - Diagnosis (1) Fracture of femoral neck, right Qualifiers: Encounter type: initial encounter Fracture type: closed Qualified Code(s): S72.001A - Fracture of unspecified part of neck of right femur, initial encounter for closed fracture Is this a current diagnosis for this admission?: Yes Plan: POD#2 Rt hip Hemiarthroplasty Patient is admitted to the medical floor. Orthopedics is consulted; primary management per Dr. Schmidt's expertise. Cardiology was consulted for surgical clearance. Currently receiving Percocet and IV Dilaudid as needed for pain control. Postoperative DVT prophylaxis per Ortho's recommendations; currently on Lovenox. Pepcid for PUD prophylaxis. PT/OT consultation. Dr. Alex Gipson consulted for consideration of Acute Rehab. Discharge planning consulted. (2) Acute blood loss as cause of postoperative anemia Is this a current diagnosis for this admission?: Yes Plan: Hbg 10.4-> 10.4-> 7.8-> 7.1-> 9.6 (s/p 2 units PRBC)-> 10.9 Appears to have stabalized; now trending up. s/p 2 units PRBC Anemia panel revealed B12 and iron deficiency. Begin daily vitamin and ferrous sulfate supplementation. Received B12 IM injection this afternoon. (3) Hypertension Is this a current diagnosis for this admission?: Yes Plan: Acceptable blood pressure at present. Continue home dose Amlodipine. PRN IV Hydralazine and Lopressor as needed for blood pressure control. Provide appropriate pain management. Cardiac diet. (4) Laceration of right elbow Qualifiers: Encounter type: initial encounter Qualified Code(s): S51.011A - Laceration without foreign body of right elbow, initial encounter Is this a current diagnosis for this admission?: Yes Plan: Repaired with Steri-Strips per ED provider. Wound care per nursing protocol. (5) Tobacco abuse Is this a current diagnosis for this admission?: Yes Plan: Smoking cessation encouraged; nicotine replacement therapies provided. (6) Abnormal EKG Is this a current diagnosis for this admission?: Yes Plan: Prolonged QTC (513) on EKG. Cardiology was consulted; have provided cardiac clearance for orthopedic procedure. (7) Underweight Is this a current diagnosis for this admission?: Yes Plan: BMI 15.8 Albumin 4.32 Start multivitamin, thiamine, folic acid, ferrous sulfate supplementation. Registered dietitian is consulted. - Time Time Spent with patient: 25-34 minutes Medications reviewed and adjusted accordingly: Yes Anticipated discharge: Acute Rehab Within: when bed available
[2019-07-11] MEDS: SIMVASTATIN 10 MG TABLET PO SCH (21:12)
[2019-07-12] MEDS: CEFAZOLIN SODIUM 2 GM in DEXTROSE 5%-WATER 100 ML IV SCH ×3 (03:29→14:26)
[2019-07-12] MEDS: HYDROMORPHONE HCL INJ/PF 2 MG/ML AMPULE IV PRN (03:39)
[2019-07-12] MEDS: HEPARIN SOD (PORCINE) 5,000 UNIT/ML 1 ML VIAL SUBCUT SCH ×2 (05:24→14:25)
[2019-07-12 05:42] LABS: HEMATOCRIT 31.5 % (36.0-47.0); HEMOGLOBIN 10.6 g/dL (12.0-15.5); MEAN CORPUSCULAR HEMOGLOBIN 29.1 pg (27.0-33.4); MEAN CORPUSCULAR HGB CONC 33.8 g/dL (32.0-36.0); MEAN CORPUSCULAR VOLUME 86 fl (80-97); PLATELET COUNT 241 10^3/uL (150-450); RED BLOOD COUNT 3.65 10^6/uL (3.72-5.28); RED CELL DISTRIBUTION WIDTH 16.1 % (11.5-14.0); WHITE BLOOD COUNT 7.1 10^3/uL (4.0-10.5)
[2019-07-12] MEDS: FERROUS SULFATE 325 MG TABLET PO SCH ×2 (08:53→17:28)
[2019-07-12] MEDS: OXYCODONE-ACETAMINOPHEN 5-325 MG TABLET PO PRN ×2 (08:53→15:21)
[2019-07-12] MEDS: NICOTINE 7 MG/24 HR PATCH.TD24 TD SCH (11:00)
[2019-07-12] MEDS: MULTIVITAMIN TABLET PO SCH (11:15)
[2019-07-12] MEDS: THIAMINE HCL 100 MG TABLET PO SCH (11:15)
[2019-07-12] MEDS: DOCUSATE SODIUM 100 MG CAPSULE PO SCH (11:15)
[2019-07-12] MEDS: FOLIC ACID 1 MG TABLET PO SCH (11:15)
[2019-07-12] MEDS: AMLODIPINE BESYLATE 5 MG TABLET PO SCH (11:16)
[2019-07-12] MEDS: FAMOTIDINE INJ/PF 20 MG/2 ML SDV IV SCH (11:16)
--- NOTE | 2019-07-12 13:53 | PDOC PROGRESS REPORT ---
Subjective Subjective:: Patient lying in bed comfortably states pain is currently controlled. No issues overnight. Denies chest pain or shortness of breath. Reason For Visit: SUBCAPITAL RIGHT HIP FRACTURE,HYPERTENSION,TOBACCO Physical Exam Vital Signs: Temp Pulse Resp BP Pulse Ox 97.4 F 69 16 139/82 H 99 07/12/19 11:32 07/12/19 11:32 07/12/19 11:32 07/12/19 11:32 07/12/19 11:32 Intake & Output 07/11/19 07/12/19 07/13/19 06:59 06:59 06:59 Intake Total 1828 1740 460 Output Total 450 Balance 1378 1740 460 Weight 50.2 kg 50.5 kg Musculoskeletal exam: PRESENT: other - Right hip: Dressing clean/dry/intact no erythema or drainage. Moderate thigh swelling without change, intact plantarflexion/dorsiflexion. No sensory deficits. No calf tenderness. Results Laboratory Results: 07/12/19 05:12 07/11/19 03:50 07/11/19 07/12/19 14:52 05:12 WBC 8.9 7.1 RBC 3.71 L 3.65 L Hgb 10.9 L 10.6 L Hct 31.6 L 31.5 L MCV 85 86 MCH 29.3 29.1 MCHC 34.4 33.8 RDW 16.5 H 16.1 H Plt Count 225 241 07/08/19 08:59 Creatine Kinase 105 Impressions: Chest X-Ray 07/08/19 09:02 IMPRESSION: NO ACUTE RADIOGRAPHIC FINDING IN THE CHEST. Elbow X-Ray 07/08/19 09:02 IMPRESSION: NEGATIVE STUDY OF THE RIGHT ELBOW. NO RADIOGRAPHIC EVIDENCE OF ACUTE INJURY. Hip/Pelvis X-Ray 07/09/19 17:22 IMPRESSION: 1. SATISFACTORY POSTOPERATIVE RIGHT HIP. Assessment & Plan - Diagnosis (1) Fracture of femoral neck, right Qualifiers: Encounter type: initial encounter Fracture type: closed Qualified Code(s): S72.001A - Fracture of unspecified part of neck of right femur, initial encounter for closed fracture Is this a current diagnosis for this admission?: Yes Plan: Postop day #3 status post right hip hemiarthroplasty 1. Physical therapy with hip precautions 2. Pain control 3. DVT prophylaxis with Plavix and aspirin 81 mg daily 4. Orthopedically stable for discharge to home. - Time Time Spent with patient: Less than 15 minutes
[2019-07-12 18:39] VITALS: BP 136/82
--- NOTE | 2019-07-14 08:16 | PDOC DISCHARGE SUMMARY ---
Impression - Admit/DC Date/PCP Admission Date/Primary Care Provider: 07/08/19 11:10 Discharge Date: 07/12/19 - Discharge Diagnosis (1) Fracture of femoral neck, right Is this a current diagnosis for this admission?: Yes (2) Acute blood loss as cause of postoperative anemia Is this a current diagnosis for this admission?: Yes (3) Hypertension Is this a current diagnosis for this admission?: Yes (4) Laceration of right elbow Is this a current diagnosis for this admission?: Yes (5) Tobacco abuse Is this a current diagnosis for this admission?: Yes (6) Abnormal EKG Is this a current diagnosis for this admission?: Yes (7) Underweight Is this a current diagnosis for this admission?: Yes - Additional Information Resuscitation Status: Do Not Resuscitate Discharge Diet: As Tolerated Discharge Activity: No Lifting Over 10 Pounds, No Lifting/Push/Pulling Referrals: [facility] [Outside] - 07/13/19 KENN MAY DO [ACTIVE STAFF] - 07/22/19 2:00 pm Prescriptions: Aspirin [Adult Aspirin Regimen] 81 mg PO DAILY #90 tablet. Ferrous Sulfate [Feosol 325 mg Tablet] 325 mg PO BIDPCBS #60 tablet Folic Acid [Folvite 1 mg Tablet] 1 mg PO DAILY #30 tablet Nicotine [Nicoderm 7 mg/24 Hr Transdermal Patch] 1 each TD DAILY #30 patch.td24 Oxycodone HCl/Acetaminophen [Percocet 5-325 mg Tablet] 1 - 2 tab PO Q6HP PRN #20 tablet PRN Reason: Multivitamin [Tab-A-Chris (Multiple Vitamin) Tablet] 1 tab PO DAILY #30 tablet Thiamine HCl [Thiamine 100 mg Tablet] 100 mg PO DAILY #30 tablet Home Medications: Amlodipine Besylate [Norvasc 5 mg Tablet] 5 mg PO DAILY 07/08/19 Clopidogrel Bisulfate [Plavix 75 mg Tablet] 75 mg PO DAILY 07/08/19 Pantoprazole Sodium [Protonix [address] Tablet] 40 mg PO QAM 07/08/19 Pravastatin Sodium 20 mg PO DAILY 07/08/19 Acetaminophen [Tylenol 325 mg Tablet] 650 mg PO Q4HP PRN tablet 07/12/19 Aspirin [Adult Aspirin Regimen] 81 mg PO DAILY #90 tablet. 07/12/19 Docusate Sodium [Colace 100 mg Capsule] 100 mg PO DAILY capsule 07/12/19 Ferrous Sulfate [Feosol 325 mg Tablet] 325 mg PO BIDPCBS #60 tablet 07/12/19 Folic Acid [Folvite 1 mg Tablet] 1 mg PO DAILY #30 tablet 07/12/19 Multivitamin [Tab-A-Chris (Multiple Vitamin) Tablet] 1 tab PO DAILY #30 tablet 07/12/19 Nicotine [Nicoderm 7 mg/24 Hr Transdermal Patch] 1 each TD DAILY #30 patch.td24 07/12/19 Oxycodone HCl/Acetaminophen [Percocet 5-325 mg Tablet] 1 - 2 tab PO Q6HP PRN #20 tablet 07/12/19 Thiamine HCl [Thiamine 100 mg Tablet] 100 mg PO DAILY #30 tablet 07/12/19 History of Present Illiness History of Present Illness: Per H&P by Lc Elizabeth PA-C: MARVIN FONTAINE is a 59 year old female presents to the emergency room after fracturing her right hip last night.. Patient states around 8:00 last night she was in the shower when she slipped and fell landing on her right hip. Due to the severe pain she was unable to get out of bed until early this morning when she came to the emergency room. Patient lives alone. The ER patient was found to have a subcapital displaced fracture of the femoral neck. Orthopedics has seen the patient and feels that she will need surgery and has asked the hospitalist service to admit the patient due to her comorbidities consisting of #1 hypertension #2 tobacco abuse #3 status post CVA #4 abnormal EKG. Patient tells me that for about a year she will have episodic chest pain that will come and go. Patient tells me she is never seen a physician for this.. Patient smokes a pack of cigarettes per day and has done so most of her life. Patient has a history of hypertension for many years and states that several years ago she had an ischemic stroke that resulted in no deficits.. Patient tells me she desires to be a DNR. Patient has a prolonged QT interval on her EKG and with her history of episodic chest pain she be seen by cardiology. Consulted cardiology to see her with us.. We will allow the patient to eat this afternoon and treat her prophylactically with heparin for DVTs and make her n.p.o. after midnight and stop the heparin tonight in anticipation for surgery tomorrow morning. I have answered all of patient's questions and she seems satisfied. Hospital Course Hospital Course: (1) Fracture of femoral neck, right POD#3 Rt hip Hemiarthroplasty Patient was admitted to the medical floor. Orthopedics is consulted; primary management per Dr. May's expertise. Cardiology was consulted for surgical clearance. She is now ambulatory >250 feet with FWW. She is discharged home wiht arrangements made to continue outpatient physical therapy. Will continue on ASA and Plavix for post-op DVT prophylaxis per discussion with Dr. May. Follow up with Dr. May in 2 weeks. (2) Acute blood loss as cause of postoperative anemia Resolved. Hgb now stable. Hbg 10.4-> 10.4-> 7.8-> 7.1-> 9.6 (s/p 2 units PRBC)-> 10.9-> 10.6 s/p 2 units PRBC Anemia panel revealed B12 and iron deficiency. Continue daily vitamin and ferrous sulfate supplementation. Received B12 IM injection. (3) Hypertension Acceptable blood pressure at present. Continue home dose Amlodipine. (4) Laceration of right elbow Repaired with Steri-Strips per ED provider. (5) Tobacco abuse Smoking cessation encouraged; nicotine replacement therapies provided. (6) Abnormal EKG Prolonged QTC (513) on EKG. Cardiology was consulted; have provided cardiac clearance for orthopedic procedure. (7) Underweight BMI 15.8 Albumin 4.32 Continue multivitamin, thiamine, folic acid, ferrous sulfate supplementation. Registered dietitian is consulted. Physical Exam Vital Signs: Temp Pulse Resp BP Pulse Ox 98.2 F 74 16 136/82 H 97 07/12/19 17:25 07/12/19 17:25 07/12/19 17:25 07/12/19 17:25 07/12/19 17:25 Intake & Output 07/13/19 07/14/19 07/15/19 06:59 06:59 06:59 Intake Total 700 Balance 700 General appearance: PRESENT: no acute distress, cooperative, thin, well- developed, well-nourished Head exam: PRESENT: atraumatic, normocephalic Eye exam: PRESENT: conjunctiva pink, EOMI, PERRLA. ABSENT: scleral icterus Mouth exam: PRESENT: moist, tongue midline Respiratory exam: PRESENT: clear to auscultation odette, symmetrical, unlabored. ABSENT: rales, rhonchi, wheezes Cardiovascular exam: PRESENT: RRR. ABSENT: diastolic murmur, rubs, systolic murmur Pulses: PRESENT: normal dorsalis pedis pul Vascular exam: PRESENT: normal capillary refill Extremities exam: PRESENT: full ROM, tenderness - Rt hip. ABSENT: calf tenderness, clubbing, pedal edema Musculoskeletal exam: PRESENT: ambulatory - w/ FWW Neurological exam: PRESENT: alert, awake, oriented to person, oriented to place, oriented to time, oriented to situation, CN II-XII grossly intact. ABSENT: motor sensory deficit Psychiatric exam: PRESENT: appropriate affect, normal mood. ABSENT: homicidal ideation, suicidal ideation Skin exam: PRESENT: dry, warm. ABSENT: cyanosis, rash Results Laboratory Results: WBC 7.1 10^3/uL (4.0-10.5) 07/12/19 05:12 RBC 3.65 10^6/uL (3.72-5.28) L 07/12/19 05:12 Hgb 10.6 g/dL (12.0-15.5) L 07/12/19 05:12 Hct 31.5 % (36.0-47.0) L 07/12/19 05:12 MCV 86 fl (80-97) 07/12/19 05:12 MCH 29.1 pg (27.0-33.4) 07/12/19 05:12 MCHC 33.8 g/dL (32.0-36.0) 07/12/19 05:12 RDW 16.1 % (11.5-14.0) H 07/12/19 05:12 Plt Count 241 10^3/uL (150-450) 07/12/19 05:12 Lymph % (Auto) 20.2 % (13-45) 07/11/19 03:50 [place] % (Auto) 18.4 % (3-13) H 07/11/19 03:50 Eos % (Auto) 0.5 % (0-6) 07/11/19 03:50 Baso % (Auto) 0.6 % (0-2) 07/11/19 03:50 Reticulocyte # 0.034 10^6/uL (0.028-0.122) 07/10/19 13:38 Absolute Neuts (auto) 4.0 10^3/uL (1.7-8.2) 07/11/19 03:50 Absolute Lymphs (auto) 1.4 10^3/uL (0.5-4.7) 07/11/19 03:50 Absolute Monos (auto) 1.2 10^3/uL (0.1-1.4) 07/11/19 03:50 Absolute Eos (auto) 0.0 10^3/uL (0.0-0.6) 07/11/19 03:50 Absolute Basos (auto) 0.0 10^3/uL (0.0-0.2) 07/11/19 03:50 Seg Neutrophils % 60.3 % (42-78) 07/11/19 03:50 Retic Count (auto) 1.33 % (0.66-2.85) 07/10/19 13:38 PT 14.0 SEC (11.4-15.4) 07/08/19 08:59 INR 1.08 07/08/19 08:59 APTT 31.0 SEC (23.5-35.8) 07/09/19 05:30 Sodium 133.5 mmol/L (137-145) L 07/11/19 03:50 Potassium 3.6 mmol/L (3.6-5.0) 07/11/19 03:50 Chloride 104 mmol/L (98-107) 07/11/19 03:50 Carbon Dioxide 25 mmol/L (22-30) 07/11/19 03:50 Anion Gap 5 (5-19) 07/11/19 03:50 BUN 8 mg/dL (7-20) 07/11/19 03:50 Creatinine 0.59 mg/dL (0.52-1.25) 07/11/19 03:50 Est GFR ( Amer) > 60 (>60) 07/11/19 03:50 Est GFR (Non-Af Amer) Cancelled 07/09/19 05:30 Est GFR (MDRD) Non-Af > 60 (>60) 07/11/19 03:50 Glucose 112 mg/dL (75-110) H 07/11/19 03:50 Calcium 8.1 mg/dL (8.4-10.2) L 07/11/19 03:50 Magnesium 1.5 mg/dL (1.6-2.3) L 07/09/19 06:46 Iron 24.7 ug/dL (37-170) L 07/10/19 13:38 TIBC 329 ug/dL (250-450) 07/10/19 13:38 % Saturation 8 % 07/10/19 13:38 Transferrin 240.29 mg/dL (206.00-381.00) 07/10/19 13:38 Ferritin 39.60 ng/mL (11.1-264.0) 07/10/19 13:38 Total Bilirubin 0.9 mg/dL (0.2-1.3) 07/08/19 08:59 Direct Bilirubin 0.0 mg/dL (0.0-0.4) 07/08/19 08:59 Neonat Total Bilirubin Not Reportable 07/08/19 08:59 Neonat Direct Bilirubin Not Reportable 07/08/19 08:59 Neonat Indirect Bili Not Reportable 07/08/19 08:59 AST 28 U/L (14-36) 07/08/19 08:59 ALT 15 U/L (<35) 07/08/19 08:59 Alkaline Phosphatase 62 U/L (38-126) 07/08/19 08:59 Creatine Kinase 105 U/L (30-135) 07/08/19 08:59 Total Protein 7.1 g/dL (6.3-8.2) 07/08/19 08:59 Albumin 4.3 g/dL (3.5-5.0) 07/08/19 08:59 Triglycerides 131 mg/dL (<150) 07/11/19 03:50 Cholesterol 123.64 mg/dL (0-200) 07/11/19 03:50 LDL Cholesterol Direct 52 mg/dL (<100) 07/11/19 03:50 VLDL Cholesterol 26.0 mg/dL (10-31) 07/11/19 03:50 HDL Cholesterol 55 mg/dL (>40) 07/11/19 03:50 EGFR Cancelled 07/09/19 05:30 Vitamin B12 205.0 pg/mL (239-931) L 07/10/19 13:38 Folate 4.11 ng/mL (>2.76) 07/10/19 13:38 TSH 1.76 uIU/mL (0.47-4.68) 07/08/19 08:59 Urine Color YELLOW 07/08/19 09:09 Urine Appearance CLEAR 07/08/19 09:09 Urine pH 6.0 (5.0-9.0) 07/08/19 09:09 Ur Specific [place] 1.010 07/08/19 09:09 Urine Protein NEGATIVE mg/dL (NEGATIVE) 07/08/19 09:09 Urine Glucose (UA) NEGATIVE mg/dL (NEGATIVE) 07/08/19 09:09 Urine Ketones NEGATIVE mg/dL (NEGATIVE) 07/08/19 09:09 Urine Blood NEGATIVE (NEGATIVE) 07/08/19 09:09 Urine Nitrite NEGATIVE (NEGATIVE) 07/08/19 09:09 Urine Bilirubin NEGATIVE (NEGATIVE) 07/08/19 09:09 Urine Urobilinogen NEGATIVE mg/dL (<2.0) 07/08/19 09:09 Ur Leukocyte Esterase NEGATIVE (NEGATIVE) 07/08/19 09:09 Urine WBC (Auto) 1 /HPF 07/08/19 09:09 Urine RBC (Auto) 2 /HPF 07/08/19 09:09 U Hyaline Cast (Auto) 1 /LPF 07/08/19 09:09 Squamous Epi Cells Auto <1 /HPF 07/08/19 09:09 Urine Mucus (Auto) RARE /LPF 07/08/19 09:09 Urine Ascorbic Acid NEGATIVE (NEGATIVE) 07/08/19 09:09 COVID-19 Source Cancelled 07/08/19 13:00 COVID-19 ([facility]AL[facility]) Cancelled 07/08/19 13:00 SARS-CoV-2 (PCR) NEGATIVE (NEGATIVE) 07/08/19 13:00 Blood Type A POSITIVE 07/09/19 15:41 Blood Type Confirm A POSITIVE 07/10/19 15:03 Antibody Screen NEGATIVE 07/09/19 15:41 Crossmatch See Detail 07/09/19 15:41 Impressions: Hip/Pelvis X-Ray 07/08/19 00:00 IMPRESSION: Subcapital right hip fracture with resulting varus deformity. Chest X-Ray 07/08/19 09:02 IMPRESSION: NO ACUTE RADIOGRAPHIC FINDING IN THE CHEST. Elbow X-Ray 07/08/19 09:02 IMPRESSION: NEGATIVE STUDY OF THE RIGHT ELBOW. NO RADIOGRAPHIC EVIDENCE OF ACUTE INJURY. Hip/Pelvis X-Ray 07/09/19 17:22 IMPRESSION: 1. SATISFACTORY POSTOPERATIVE RIGHT HIP. Plan Plan of Treatment: Patient is discharged home in stable condition. She should follow up with her PCP within 1 week. Follow up with Dr. May in 10-14 days. Keep appointments with [facility] outpatient therapy. Take your medications as prescribed. Return to the emergency department as needed for concerning symptoms. Time Spent: Greater than 30 Minutes Stroke Is this a Stroke Patient?: No Acute Heart Failure - Is this a Heart Failure Patient?: No
== END 2019-07-12 17:35 | disposition home or self-care (01) | DRG 470 ==
LOC: ER 08:38 → EH 11:10 → 4S 13:55
PROVIDERS: ADMIT Hospitalist; ATTEND Registered Nurse
PROC: 3E0234Z Introduction of Serum, Toxoid and Vaccine into Muscle, Percutaneous Approach (ICD-10-PCS; 2019-07-08)
PROC: 0SRR0JZ Replacement of Right Hip Joint, Femoral Surface with Synthetic Substitute, Open Approach (ICD-10-PCS; principal; 2019-07-09 12:00)
PROC: 30233N1 Transfusion of Nonautologous Red Blood Cells into Peripheral Vein, Percutaneous Approach (ICD-10-PCS; 2019-07-10)
DX: S72.001A Fracture of unspecified part of neck of right femur, initial encounter for closed fracture (principal); Z68.1 Body mass index [BMI] 19.9 or less, adult; D62 Acute posthemorrhagic anemia; S51.011A Laceration without foreign body of right elbow, initial encounter; E78.00 Pure hypercholesterolemia, unspecified; E83.42 Hypomagnesemia; I10 Essential (primary) hypertension; R94.31 Abnormal electrocardiogram [ECG] [EKG]; F17.210 Nicotine dependence, cigarettes, uncomplicated; R63.6 Underweight; W18.2XXA Fall in (into) shower or empty bathtub, initial encounter; Y93.89 Activity, other specified; Y92.012 Bathroom of single-family (private) house as the place of occurrence of the external cause; Z66 Do not resuscitate; Z60.2 Problems related to living alone; Z03.818 Encounter for observation for suspected exposure to other biological agents ruled out; Z79.01 Long term (current) use of anticoagulants; Z86.73 Personal history of transient ischemic attack (TIA), and cerebral infarction without residual deficits
CPT/HCPCS: 01210; 36415; 36430; 71045; 80048; 80053; 80061; 81001; 82550; 82607; 82728; 82746; 83540; 83550; 83735; 84443; 84466; 85025; 85027; 85045; 85610; 85730; 86850; 86900; 86901; 86920; 87635; 88304; 88311; 90471; 90715; 93005; 93010; 93306; 94799; 96374; 96375; 99285; C1776; C9290; J0360; J0690; J1100; J1170; J1644; J2250; J2270; J2405; J2704; J2710; J3010; J3420; J3490; J7030; J7060; J7120; P9016; S0028